=== PATIENT | female | born 1970 | race Caucasian/White ===

== ENCOUNTER 2016-12-15 14:06 | Inpatient (IN) | payer OTHER ==
[~2016-12-15] VITALS: Ht 172.7 cm; Wt 96.0 kg
[~2016-12-15 14:06] MED LIST: LEVO100T82 PO; NAPR-260 PO; SIMV20TA2 PO
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
[2016-12-15] MEDS ORDERED: LORA1TAB PO (14:45)
[2016-12-15] MEDS ORDERED: FER325 PO (14:45)
[2016-12-15] MEDS ORDERED: LORAZEPAM 2 MG INJ IV ONE ×3 (15:00→20:30)
[2016-12-15] MEDS ORDERED: SOD CHLORIDE 0.9% 1,000 ML IV ONE (15:00)
[2016-12-15 15:13] LABS: ADD SCAN DIFF NO
[2016-12-15 15:16] LABS: BASOPHILS % 0.4 % (0.0-2.0); EOSINOPHILS # 0.2 10^3/ul (0.0-0.5); EOSINOPHILS % 2.7 % (0.0-7.0); HEMATOCRIT 33.8 % (37.0-47.0); HEMOGLOBIN 10.3 g/dl (12.0-16.0); LYMPHOCYTES # 2.3 10^3/ul (0.8-2.9); LYMPHOCYTES % 30.9 % (15.0-51.0); MEAN CORPUSCULAR HGB CONC 30.5 g/dl (32.0-37.0); MEAN CORPUSCULAR VOLUME 78.6 fl (82.0-101.0); MEAN PLATELET VOLUME 10.1 fl (7.4-10.4); MONOCYTE # 0.4 10^3/ul (0.3-0.9); MONOCYTES % 5.2 % (0.0-11.0); NEUTROPHIL # 4.5 10^3/ul (1.6-7.5); NEUTROPHILS % 60.1 % (39.0-77.0); PLATELET COUNT 365 10^3/UL (140-415); RED CELL DISTRIBUTION WIDTH 14.9 % (11.5-14.5); WHITE BLOOD COUNT 7.5 10^3/ul (4.8-10.8)
[2016-12-15 15:25] LABS: URINE BLOOD (Dip) POC Trace-lysed (NEGATIVE)
[2016-12-15 15:30] LABS: INR 1.07; PROTIME 13.9 Sec (12.2-14.2); PT RATIO 1.1
[2016-12-15 15:31] LABS: PARTIAL THROMBOPLASTIN TIME 25.9 Sec (25.0-35.0); POTASSIUM 3.4 mmol/L (3.5-5.1)
[2016-12-15 15:33] LABS: CREATININE 0.6 mg/dl (0.44-1.00)
[2016-12-15 15:34] LABS: CALCIUM 9.7 mg/dl (8.4-10.2)
--- NOTE | 2016-12-15 16:33 | RADRPT ---
PROCEDURE: XR Abdomen. CLINICAL INDICATION: Abdominal pain TECHNIQUE: AP and decubitus abdomen x-ray. COMPARISON: None. FINDINGS: Scattered air is seen in the colon. Multiple air-filled loops of small bowel are seen in the abdome n. A few loops of small bowel appear dilated measuring up to approximately 3.5 cm in the left lower abdomen. No gross free air seen on the decubitus image. Organomegaly is identified. Cholecystecto my clips are seen in the right upper quadrant. Degenerative changes are seen in the spine and hips. A few phleboliths are seen in the pelvis. IMPRESSION: A few air-filled, mildly dilated loops of small bowel in the abdomen. Finding may reflect small bow el ileus or obstruction. If further characterization is needed CT should be considered. If further characterization of the abdomen is needed CT is recommended. RPTAT: AA .Nir Hdez MD, Date Time Electronically viewed and signed by .Nir Hdez MD, on 12/15/2016 16:33 .P/
[2016-12-15] MEDS ORDERED: POTASSIUM CHLORIDE (SR) 20 MEQ TAB PO STA (16:34)
--- NOTE | 2016-12-15 18:59 | RADRPT ---
PROCEDURE: MRI Brain without contrast. CLINICAL INDICATION: Left-sided weakness. TECHNIQUE: MRI of the brain was performed with the following sequences obtained: Sagittal, coronal and axial T1-weighted, axial T2-weighted, axial FLAIR, axial diffusion weighted (with ADC map), and coronal GRE. COMPARISON: None available FINDINGS: Abnormal restricted diffusion involving the posterior aspect of the medial right temporal lobe invol ving the hippocampus with associated hyperintense FLAIR signal in this location, findings consistent with an acute ischemic infarct. Additional restricted diffusion is present within the center of th e right thalamic nucleus consistent with an acute ischemic lacunar type infarct measuring 1 cm in gr eatest dimension. An additional ischemic infarct is present in the right splenium of the corpus shan losum, the ovoid abnormality 1.3 cm. Local mass effect of the right temporal lobe sulci is present b ut there is no midline shift, herniation or hydrocephalous No hemorrhage or mass lesion is present. The extraaxial spaces are clear of collections. The ventricular system and sulci are normal. No signal alteration is present within the brainstem or cerebellum. The fourth ventricle is midline and the craniocervical junction lesion is intact. The area of the sella is normal. The bony calvarium and skull base are intact. Incidental mild chronic-appearing ethmoid sinus mucos al thickening is present. Moderate bilateral maxillary sinus disease is present with a small left ma xillary air fluid level. Trace sphenoid sinus disease is noted. There is a small amount of fluid w ithin the right Physiologic flow voids within the internal carotid and vertebral arteries are mainta ined. RPTAT:HJJR IMPRESSION: 1. Acute ischemic infarcts within the right posterior cerebral artery territory involving the poste rior hippocampus of the medial right temporal lobe, right thalamus and right splenium of the corpus callosum. 2. Local mass effect only is present without evidence of midline shift, herniation, hemorrhage or h ydrocephalous. 3. Critical results are discussed by telephone with emergency room physician Dr. Mayberry at 18:58 Physician Hodan Date Time Electronically viewed and signed by Physician Hodan on 12/15/2016 18:59 JR/
--- NOTE | 2016-12-15 19:21 | RADRPT ---
PROCEDURE: MRI Cervical Spine. CLINICAL INDICATION: Neck pain. Left-sided weakness. TECHNIQUE: An MRI of the cervical spine was performed utilizing the following sequences: Sagittal T1 weighted, sagittal and axial T2 weighted, sagittal T2 weighted with fat saturation, and axial GRE . COMPARISON: No prior studies are available for comparison. FINDINGS: There is a normal lordosis of the cervical spine. No vertebral body subluxation is seen. The verte bral bodies are normal in height. There is no focal suspect marrow lesion. The cervical cord is norm al in caliber and signal intensity. The craniocervical junction is unremarkable. C2-3: The disk height is preserved. No focal posterior disc herniation. No spinal canal or neural f oraminal stenosis. C3-4: The disk height is preserved. Minimal posterior disk osteophyte complex is noted. Uncovertebr al osteophytes and facet arthropathy contribute to mild foraminal stenosis. No spinal canal stenosis . C4-5: The disk height is preserved. 2-3 mm posterior disk osteophyte complex is noted which contrib utes to mild spinal canal narrowing. Uncovertebral osteophytes and facet arthropathy contribute to m ild right and moderate left foraminal stenosis. The AP diameter of the spinal canal measures 7 mm. C5-6: The disk height is mildly decreased with dislocation. There is a broad-based disk extrusion m easuring 3.5 x 14 mm (AP x craniocaudal) which contributes to moderate to severe spinal canal stenos is with flattening of ventral spinal cord. Uncovertebral osteophytes and facet arthropathy contribut e to mild right and moderate to severe left foraminal stenosis. The AP diameter of the spinal canal measures 6 mm. C6-7: The disk height is preserved. 2-3 mm posterior disk osteophyte complex is noted which contrib utes to mild spinal canal narrowing. Uncovertebral osteophytes and facet arthropathy contribute to m oderate bilateral foraminal stenosis. The AP diameter of the spinal canal measures 8 mm. C7-T1: The disk height is preserved. No focal posterior disc herniation. No spinal canal or neural foraminal stenosis. IMPRESSION: 1. Mild discogenic disease mainly at C5-C6 with a broad-based disk extrusion which contributes to m oderate to severe spinal canal stenosis with flattening of ventral spinal cord. Mild right and moder ate to severe left foraminal stenosis. 2. Posterior disk osteophyte complexes contribute to mild spinal canal narrowing at C4-C5 and C6-C7 . 3. Multilevel foraminal stenosis as outlined in details in findings. RPTAT: EE .Selni Denise MD, MD Date Time Electronically viewed and signed by .Selin Denise MD, on 12/15/2016 19:21 .N/
[2016-12-15] MEDS ORDERED: ASPIRIN 325 MG TAB PO ONE (20:00)
[2016-12-15] MEDS ORDERED: POTASSIUM CHLORIDE 250 ML IVPB ONE (20:00)
[2016-12-15] MEDS ORDERED: CEFTRIAXONE 1 GM/50 ML (PMX) 50 ML IVPB ONE (20:00)
[2016-12-15 20:16] VITALS: TEMP 97.8
[2016-12-15] MEDS ORDERED: ASPIRIN 300 MG SUPP PR ONE (20:30)
[2016-12-15] MEDS ORDERED: IOHEXOL 0 ML ONE (20:59)
[2016-12-15] MEDS ORDERED: SOD CHLORIDE 0.9% 100 ML ONE (20:59)
[2016-12-15] MEDS ORDERED: IOHEXOL 100 ML ONE (20:59)
[2016-12-15 21:49] VITALS: PULSE 84
--- NOTE | 2016-12-15 21:50 | RADRPT ---
PROCEDURE: CT angiogram neck and brain. CLINICAL INDICATION: Ischemic infarcts right cerebral hemisphere. Left-sided weakness. TECHNIQUE: The study was performed utilizing 0.6 axial sections from the thoracic inlet to the adelaide clare with the use of 97 cc of Omnipaque 350 intravenous contrast. Multiplanar and rotational MIP ref ormats were obtained. 3-D reconstructions were not performed. CTDIvol = 38.35 mGy and DLP = 754.27 mGycm. COMPARISON: MRI brain 12/15/2016 FINDINGS: CTA neck: Right carotid system: No common carotid artery occlusion or atheromatous change of significance is present. The carotid bifurcation is normal. The internal carotid artery shows no evidence for occl usion or significant stenosis. The degree of internal carotid artery stenosis is estimated at less than 30%. Left carotid system:No common carotid artery occlusion or atheromatous change of significance is pre sent. The carotid bifurcation is normal. The internal carotid artery shows no evidence for occlusi on or significant stenosis. The degree of internal carotid artery stenosis is estimated at less than 30%. Internal carotid artery stenosis estimation is based upon NASCET criteria. Right vertebral artery: Codominant to the contralateral side and uniform in caliber throughout, no evidence of dissection, occlusion or focal stenosis. Left vertebral artery: Dominant and morphology with no evidence for dissection, stenosis or occlusi on. CTA brain: Anterior circulation: The intracranial internal carotid arteries are normal bilaterally with no eduard dence for occlusion or stenosis. The anterior and middle cerebral arteries are also normal with no evidence for narrowing. There is no vasculitis pattern or extraluminal projection of contrast to lozano ggest an aneurysm. Posterior circulation: Basilar artery is uniform in caliber with no evidence of stenosis. There are no findings to correlate with the ischemic infarcts in the right medial temporal lobe, right thalam us and splenium of the right corpus callosum seen on the MRI The basilar tip is unremarkable for ane urysm. The posterior cerebral arteries are normal bilaterally as are the superior cerebellar arteri es. No vascular malformation is identified. Venous structures: Sagittal sinuses appear patent without evidence of thrombus. Transverse and sig moid sinuses are unremarkable as is the torcula. Internal cerebral veins, vein of Sridhar and straigh t sinus show no abnormalities. No cortical vein abnormality is appreciated. Other findings: Chronic ethmoid and right greater than left maxillary sinus disease is present RPTAT:HJJR IMPRESSION: 1. Unremarkable CT angiogram of the neck with no evidence of hemodynamically significant stenosis bi laterally. 2. Unremarkable CT angiogram of the brain with no findings to correlate with the right-sided ischemi c infarcts demonstrated on the MRI from earlier the same day. Physician Hodan Date Time Electronically viewed and signed by Ishan Currie Physician on 12/15/2016 21:50 /
[2016-12-15 22:00] VITALS: BP 116/74; PULSE 83; RESP 18
[2016-12-15 22:24] VITALS: Ht 172.7 cm; Wt 96.0 kg
[2016-12-15 23:01] VITALS: BP 116/69; RESP 22
[2016-12-16] VITALS (13 sets, daily range): BP systolic 101–123; BP diastolic 59–77; PULSE 76–91; RESP 17–20
[2016-12-16] MEDS ORDERED: MAGNESIUM HYDROXIDE 30ML CUP PO PRN
[2016-12-16] MEDS ORDERED: NACL 0.9% 3 ML SYG IV SCH
[2016-12-16] MEDS ORDERED: ACETAMINOPHEN 650 MG SUPP PR PRN
[2016-12-16] MEDS ORDERED: BISACODYL (EC) 5 MG TAB PO PRN
[2016-12-16] MEDS ORDERED: ACETAMINOPHEN 325 MG TAB PO PRN
[2016-12-16] MEDS ORDERED: DOCUSATE SODIUM 100 MG CAP PO PRN
[2016-12-16] MEDS ORDERED: LORAZEPAM 1 MG TAB PO PRN ×2 (00:30)
[2016-12-16] MEDS: NS + KCL 20 MEQ 1,000 ML IV SCH ×2 (00:50→23:55)
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
[2016-12-16 01:30] LABS: CREATINE KINASE 64 IU/L (23-200)
[2016-12-16 01:32] LABS: CHOL/HDL RATIO 5.4 RATIO
[2016-12-16 01:44] LABS: CK-MB 0.51 ng/ml (0.0-2.4)
[2016-12-16 02:10] LABS: TROPONIN-I < 0.012 ng/ml (0.00-0.12)
[2016-12-16] MEDS: LORAZEPAM 2 MG INJ IV PRN ×3 (03:43→14:50)
[2016-12-16] MEDS: PANTOPRAZOLE 40 MG INJ IV SCH (06:21)
[2016-12-16] MEDS: LEVOTHYROXINE 100 MCG TAB PO SCH (09:13)
[2016-12-16] MEDS: ASPIRIN 325 MG TAB PO SCH (09:13)
[2016-12-16] MEDS: FERROUS SULFATE (EC) 325 MG TAB PO SCH ×2 (09:13→20:38)
[2016-12-16 10:51] LABS: CREATINE KINASE 50 IU/L (23-200)
[2016-12-16 11:01] LABS: CK-MB 0.33 ng/ml (0.0-2.4)
--- NOTE | 2016-12-16 11:01 | RADRPT ---
PROCEDURE: Carotid ultrasound CLINICAL INDICATION: Stroke, carotid bruits TECHNIQUE: Whitt scale, color doppler, spectral doppler ultrasound of the bilateral carotid and adelaide tebral arteries. This study indirectly references the measurement of the distal ICA diameter as the denominator for s tenosis measurement. Validated velocity measurements with angiographic measurements, velocity criter ia are extrapolated from diameter data as defined by: *Cartoid artery stenosis: whitt-scale and Doppl er US diagnosis. Society of Radiologists in Ultrasound Consensus Conference. Radiology 2003; 229: 34 0-346. SRU Consensus Conference Criteria for the Diagnosis of Carotid Artery Stenosis* Degree of Stenosis, % ICA PSV, cm/sec Plaque Estimate, % ICA/CCA PSV Ratio Normal <125 None <2.0 <50 <125 <50 <2.0 50 69 125-230 >50 2.0-4.0 >70 but less than near occlusion >230 >50 <4.0 Near occlusion High, low, or undetectable Visible Variable Total occlusion Undetectable Visible, no detectable lumen Not applicable COMPARISON: CT angiography of the extracranial circulation 12/15/2016 FINDINGS: Location Right CCA61 cm/sec Prox ICA 54 cm/sec Mid ICA60 cm/sec Dist ICA63 cm/sec ECA68 cm/sec ICA/CCA1.0 Left CCA77 cm/sec Prox ICA 56 cm/sec Mid ICA63 cm/sec Dist ICA80 cm/sec ECA60 cm/sec ICA/CCA1.0 Plaque burden: No significant plaque is seen. Antegrade flow is seen within the vertebral arteries bilaterally. IMPRESSION: Normal examination. RPTAT: AADD .Jose Rucker MD, MD Date Time Electronically viewed and signed by .Jose Rucker MD, on 12/16/2016 11:01 .B/
[2016-12-16 11:14] LABS: TROPONIN-I < 0.012 ng/ml (0.00-0.12)
[2016-12-16] MEDS ORDERED: GABAPENTIN 300 MG CAP PO SCH ×2 (18:30→21:00)
--- NOTE | 2016-12-16 18:33 | QN ---
Documentation Comment [id number] LUIS TAY MD December 16, 2016 18:33
--- NOTE | 2016-12-16 18:46 | CONS ---
DATE OF ADMISSION: 12/15/2016 DATE OF CONSULTATION: 12/16/2016 TYPE OF CONSULTATION: Neurology. Thank you, Dr. Olivia, for your kind referral for evaluation of acute stroke. HISTORY OF PRESENT ILLNESS: The patient is a 46-year-old lady with past medical history of anemia a nd hypothyroidism who 2 days ago suddenly developed left-sided numbness went for evaluation at [facility] and was told that she was anxious and sent home. Her symptoms continued and she came to be evaluated to [facility]. Also, she was complaining of unsteadiness of gait . She had MRI of the brain which shows acute ischemic infarcts in the right posterior cerebral jaspreet ry territory involving posterior hippocampus, medial right temporal lobe, right thalamus and spleniu m of corpus callosum. Minimal mass effect. She also had a cervical MRI. Mild discogenic disease at C5-C6 with a broad disk extrusion contribut ing to moderate to severe spinal canal stenosis with flattening of ventral spinal cord. She had a CT angiogram of the head and neck essentially negative. Carotid ultrasound was also done and negative. MEDICATIONS PRIOR TO ADMISSION: 1. Iron. 2. Lorazepam 1 mg every 8 hours for anxiety. 3. Naprosyn. 4. Levothyroxine. Currently, she is on iron aspirin 325 mg, Synthroid, Protonix, Ativan q.6h. p.r.n. as needed for an xiety. LABORATORIES: Her labs shows essentially normal basic metabolic panel. Cholesterol 173, LDL 110. Hemoglobin 10, hematocrit 33. Normal WBCs and platelets. Normal PT, PTT. Urinalysis: Trace of ke tones, blood and 1+ leukocyte esterase. The patient received ceftriaxone in the emergency room. ALLERGIES: NONE. SOCIAL HISTORY: No alcohol, tobacco, drug use. FAMILY HISTORY: Noncontributory. While in the hospital, patient complains of mild headache. She is getting Tylenol and it helps the pain. She complains of severe anxiety and slight worsening of numbness which became slightly less o n the left face yesterday but came back today. Numbness is unpleasant with electrical shock sensati on. According to the family, and daughter at bedside, the patient is not having any problems swa llowing. She did put on low cholesterol diet. I do see a swallow study done. PHYSICAL EXAMINATION VITAL SIGNS: Temperature 99.2, pulse 77, blood pressure 112/60. GENERAL: Not in acute distress, lying in bed. HEENT: Normocephalic, atraumatic head. NECK: No carotid bruits. No thyromegaly. LUNGS: Clear to auscultation bilaterally. CARDIAC: Normal cardiac rhythm and sounds. ABDOMEN: Soft, nontender. EXTREMITIES: No cyanosis, clubbing or edema. NEUROLOGICAL: The patient is visibly anxious and flat affect, at times tearful, fluent speech. Arron ented x3. Present response to visual threat bilaterally. Pupils reactive from 3 to 2 mm bilaterall y. Extraocular movements intact without nystagmus. Symmetrical face with trace of left nasolabial fold flattening, but no definite weakness. Decreased sensation on the left hemiface. Tongue is in midline. Palate elevates symmetrically. Motor strength examination shows give way in the left uppe r extremity, possibly mild weakness. She seemed to maybe exaggerate slightly, no pronator drift, bu t down drift on the left. Normal strength in the lower extremities. Normal bulk and tone. SENSORY: Diminished on the left upper and lower extremities to all modalities. Deep tendon reflexe s 2+ throughout. Downgoing toes on the right and equivocal on the left. Coordination preserved on [id number] testing. No dysmetria or tremor. IMPRESSION: Acute ischemic stroke in patient with prior medical history only of anemia and hypothyr oidism. She has mild dyslipidemia. I will put her on high dose statin. Continue aspirin. Stroke occurred 2 days ago. It is probably okay to gradually obtain control of her blood pressure and keep her normotensive. I will increase her Lorazepam at least for now. We will make it 1 mg every 4 h ours as needed for anxiety. Also, I will start Neurontin for presence of paresthesias. The patient may benefit from antidepressant medications. I do not want to throw several new medicines at the s rosy time, so maybe it could be initiated later. We will get physical therapy consultation and savana rodríguez the recommendation for her disposition. Echocardiogram was done, but I do not see the report. E KG was normal as I mentioned already. Thank you very much for this interesting consultation. Dictated By: MICHAEL SHEA/GUILLERMINA Conf#: [id number] DID#: [id number]
--- NOTE | 2016-12-16 19:05 | HP ---
DATE OF ADMISSION: 12/15/2016 HISTORY OF PRESENT ILLNESS: The patient is a 46-year-old female who initially was seen at [facility] with complaints of left arm numbness, dizziness and blurred vision. As per ER records, stella chambers was taken to [facility] and extensive workup done including negative chest x-ray, negativ e brain CT. She was diagnosed with sinusitis and discharged with Xanax and Zithromax. The patient represented with history of chronic low back pain requiring epidural injection per record. In the p ast, the patient presented with anxiety episode. Patient has relatives who provided the history. T he patient is sleepy and groggy, unable to give detailed history. Presented with weakness. The pat ient at the time of this dictation was not able to give detailed history. PAST MEDICAL HISTORY: Positive for hypothyroidism and anxiety. ALLERGY HISTORY: NEGATIVE. FAMILY HISTORY: Per family is negative. SOCIAL HISTORY: Negative. MEDICATION HISTORY: 1. Iron sulfate. 2. Levothyroxine. 3. Lorazepam. 4. Naproxen. REVIEW OF SYSTEMS: Cannot be obtained at the time of this dictation as the patient is sleepy and a little sedated. PHYSICAL EXAMINATION: GENERAL: The patient is a mildly overweight female, awake, easily arousable, moving both upper and lower extremities without difficulty. VITAL SIGNS: Pulse 79, blood pressure 119/72. HEENT: Head is atraumatic, normocephalic. Pupils equal, reactive to light. NECK: Supple. No JVD. LUNGS: Clear. CARDIOVASCULAR: S1, S2 are normal. ABDOMEN: Soft, nontender. Bowel sounds positive. No palpable mass or hepatosplenomegaly. No guar ding, rebound tenderness. EXTREMITIES: No cyanosis, clubbing, or edema. CENTRAL NERVOUS SYSTEM: The patient is awake, alert with no focal deficit. LABORATORY DATA: Hematocrit 33.8, MCV 17.6, platelet count is ____, potassium 3.4. Patient had cer vical spine x-ray which shows mild discogenic disease at C5-C6 with broad-based disk extrusion which contributes to moderate to severe spinal canal stenosis with ____ spinal cord, mild right and mode rate to severe left foraminal stenosis, posterior disk osteophyte complex contributes to mild spinal canal narrowing at C4-C5, C6-C7. The patient has a brain MRI with acute ischemic infarction within the right posterior cerebral artery territory involving the posterior hippocampus of the medial rig ht temporal lobe, right thalamus and right splenic of the corpus callosum, local mass effect on this end without evidence of midline shift. The patient had abdominal x-ray that showed air-filled, mil dly dilated loops of small bowel of the abdomen. CTA shows patient has unremarkable CT angiogram of the neck with no evidence of stenosis. Patient had a head CTA, unremarkable angiogram, carotid art ross ultrasound done shows the patient has a normal examination. IMPRESSION: 1. Acute cerebrovascular accident. 2. Hypokalemia. 3. Anxiety. 4. Degenerative joint disease. PLAN: Dr. Scott has seen this patient in consultation. Continue aspirin, neuro check per hospital protocol. Patient will be placed on Lipitor as well. The patient will have neurology consultation. Dr. Scott has been called. Dictated By: LUIS TAY MD BS/NTS Conf#: [id number] DID#: [id number]
[2016-12-16] MEDS: LORAZEPAM 1 MG TAB PO PRN (19:29)
[2016-12-16] MEDS: GABAPENTIN 300 MG CAP PO SCH (20:37)
[2016-12-16] MEDS: ATORVASTATIN 80 MG TAB PO SCH (20:38)
[2016-12-16] MEDS ORDERED: ATORVASTATIN 20 MG TAB PO SCH (21:00)
[2016-12-17] VITALS (12 sets, daily range): BP systolic 98–129; BP diastolic 60–74; PULSE 75–90; RESP 16–20
[2016-12-17] MEDS: PANTOPRAZOLE 40 MG INJ IV SCH (05:50)
[2016-12-17] MEDS: LORAZEPAM 1 MG TAB PO PRN ×4 (06:29→22:13)
[2016-12-17 07:03] LABS: ADD SCAN DIFF NO
[2016-12-17 07:12] LABS: BASOPHILS % 0.6 % (0.0-2.0); EOSINOPHILS # 0.4 10^3/ul (0.0-0.5); HEMATOCRIT 32.6 % (37.0-47.0); HEMOGLOBIN 9.9 g/dl (12.0-16.0); LYMPHOCYTES # 1.7 10^3/ul (0.8-2.9); LYMPHOCYTES % 25.9 % (15.0-51.0); MEAN CORPUSCULAR HGB CONC 30.4 g/dl (32.0-37.0); MEAN CORPUSCULAR VOLUME 78.9 fl (82.0-101.0); MEAN PLATELET VOLUME 9.8 fl (7.4-10.4); MONOCYTE # 0.4 10^3/ul (0.3-0.9); MONOCYTES % 6.6 % (0.0-11.0); NEUTROPHIL # 3.8 10^3/ul (1.6-7.5); NEUTROPHILS % 60.1 % (39.0-77.0); PLATELET COUNT 383 10^3/UL (140-415); RED BLOOD COUNT 4.13 10^6/ul (4.20-5.40); RED CELL DISTRIBUTION WIDTH 14.8 % (11.5-14.5); WHITE BLOOD COUNT 6.4 10^3/ul (4.8-10.8)
[2016-12-17 07:35] LABS: ALBUMIN/GLOBULIN RATIO 1.25; BILIRUBIN,INDIRECT 0.5 mg/dl (0-1.1); BILIRUBIN,TOTAL 0.5 mg/dl (0.2-1.3); CALCIUM 9.1 mg/dl (8.4-10.2); CREATININE 0.6 mg/dl (0.44-1.00); POTASSIUM 3.9 mmol/L (3.5-5.1); TOTAL PROTEIN 7.2 g/dl (6.1-8.1)
[2016-12-17] MEDS: LEVOTHYROXINE 100 MCG TAB PO SCH (07:59)
[2016-12-17] MEDS: ASPIRIN 325 MG TAB PO SCH (08:52)
[2016-12-17] MEDS: FERROUS SULFATE (EC) 325 MG TAB PO SCH ×2 (08:52→21:17)
[2016-12-17] MEDS: GABAPENTIN 300 MG CAP PO SCH ×4 (08:52→21:16)
[2016-12-17] MEDS ORDERED: MENTHOL/METH SALICYLATE 30 GM OINT TOP PRN (15:00)
--- NOTE | 2016-12-17 16:03 | PN ---
Date/Time of Note Date/Time of Note DATE: 12/17/16 TIME: 16:02 Assessment/Plan VTE Prophylaxis VTE Prophylaxis Intervention: other Lines/Catheters IV Catheter Type (from Nrs): Peripheral IV Assessment/Plan Chief Complaint/Hosp Course CVA HTN DYSLIPEDEMIA PLAN PT OT PER NEURO Problems: Subjective 24 Hr Interval Summary Subjective hx not possible: other (WEAKNESS BETTER) Exam/Review of Systems Vital Signs Vitals Vital Signs Date Time Temp Pulse Resp B/P Pulse Ox O2 Delivery O2 Flow Rate FiO2 12/17/16 15:45 98.5 79 20 121/67 95 12/15/16 22:00 Room Air Intake and Output 12/16/16 12/16/16 12/17/16 15:00 23:00 07:00 Intake Total 560 ml 980 ml Balance 560 ml 980 ml Exam Neck: supple Respiratory: clear to auscultation Cardiovascular: regular rate and rhythm Gastrointestinal: soft Musculoskeletal: nl extremities to inspection Extremities: normal pulses Results Result Diagram: 12/17/16 0640 12/17/16 0640 Results 24 hrs Laboratory Tests Test 12/17/16 06:40 White Blood Count 6.4 Red Blood Count 4.13 L Hemoglobin 9.9 L Hematocrit 32.6 L Mean Corpuscular Volume 78.9 L Mean Corpuscular Hemoglobin 24.0 L Mean Corpuscular Hemoglobin Concent 30.4 L Red Cell Distribution Width 14.8 H Platelet Count 383 Mean Platelet Volume 9.8 Neutrophils % 60.1 Lymphocytes % 25.9 Monocytes % 6.6 Eosinophils % 6.0 Basophils % 0.6 Nucleated Red Blood Cells % 0.0 Neutrophils # 3.8 Lymphocytes # 1.7 Monocytes # 0.4 Eosinophils # 0.4 Basophils # 0.0 Nucleated Red Blood Cells # 0.0 Sodium Level 136 Potassium Level 3.9 Chloride Level 106 Carbon Dioxide Level 23 Anion Gap 11 Blood Urea Nitrogen 11 Creatinine 0.60 Glucose Level 98 Calcium Level 9.1 Total Bilirubin 0.5 Direct Bilirubin 0.00 Indirect Bilirubin 0.5 Aspartate Amino Transf (AST/SGOT) 29 Alanine Aminotransferase (ALT/SGPT) 50 Alkaline Phosphatase 60 Total Protein 7.2 Albumin 4.0 Globulin 3.20 Albumin/Globulin Ratio 1.25 Medications Medications Current Medications Ferrous Sulfate 325 mg 325 mg BID PO Last administered on 12/17/16t 08:52; Admin Dose 325 MG; Start 12/16/16 at 09:00 Potassium Chloride/Sodium Chloride (NS-KCl 20 Meq) 1,000 ml @ 40 mls/hr Q24H IV Last administered on 12/16/16 23:55; Admin Dose 40 MLS/HR; Start 12/15/16 at 23:55 Acetaminophen (Tylenol Tab) 650 mg Q6H PRN PO PAIN LEVEL 1-3 OR FEVER Last administered on 12/16/16 18:23; Admin Dose 650 MG; Start 12/16/16 at 00:00 Acetaminophen (Tylenol Supp) 650 mg Q6H PRN [place] PAIN LEVEL 1-3 OR FEVER; Start 12/16/16 at 00:00 Docusate Sodium (Colace) 100 mg Q12H PRN PO CONSTIPATION; Start 12/16/16 at 00: 00 Magnesium Hydroxide (Milk Of Mag) 30 ml DAILY PRN PO CONSTIPATION; Start at 00:00 Bisacodyl (Dulcolax) 5 mg DAILY PRN PO CONSTIPATION; Start 12/16/16 at 00:00 Pantoprazole (Protonix Iv) 40 mg DAILY@06 IV Last administered on 12/17/16 05: 50; Admin Dose 40 MG; Start 12/16/16 at 06:00 Aspirin (Aspirin) 325 mg DAILY PO Last administered on 12/17/16 08:52; Admin Dose 325 MG; Start 12/16/16 at 09:00 Lorazepam (Ativan) 1 mg Q6H PRN IV anxiety Last administered on 12/16/16 14:50 ; Admin Dose 1 MG; Start 12/16/16 at 04:00 Lorazepam (Ativan) 1 mg Q4H PRN PO ANXIETY Last administered on 12/17/16 15:45 ; Admin Dose 1 MG; Start 12/16/16 at 18:20 Atorvastatin Calcium (Lipitor) 80 mg HS PO Last administered on 12/16/16 20:38 ; Admin Dose 80 MG; Start 12/16/16 at 21:00 Gabapentin (Neurontin) 300 mg TID PO Last administered on 12/17/16 14:41; Admin Dose 300 MG; Start 12/16/16 at 21:00 Menthol/Methyl Salicylate (Noble Proctor) 1 applic TID PRN TOP PAIN Last administered on 12/17/16 15:44; Admin Dose 1 APPLIC; Start 12/17/16 at 15:00 LUIS TAY MD December 17, 2016 16:03
--- NOTE | 2016-12-17 17:36 | CONS ---
Date/Time of Note Date/Time of Note DATE: 12/17/16 TIME: 17:33 Consult Date/Type/Reason Admit Date/Time December 15, 2016 at 19:59 Initial Consult Date Type of Consultation: neurology Subjective no acute events, still unpleasant electric tingling,despite neurontin 300 tid left sided weakness, numbness, ataxia. Objective Vital Signs Date Time Temp Pulse Resp B/P Pulse Ox O2 Delivery O2 Flow Rate FiO2 12/17/16 16:00 82 12/17/16 15:45 98.5 20 121/67 95 12/15/16 22:00 Room Air Intake and Output 12/16/16 12/16/16 12/17/16 15:00 23:00 07:00 Intake Total 560 ml 980 ml Balance 560 ml 980 ml Results/Medications Result Diagram: 12/17/16 0640 12/17/16 0640 Results 24 hrs Laboratory Tests Test 12/17/16 06:40 White Blood Count 6.4 Red Blood Count 4.13 L Hemoglobin 9.9 L Hematocrit 32.6 L Mean Corpuscular Volume 78.9 L Mean Corpuscular Hemoglobin 24.0 L Mean Corpuscular Hemoglobin Concent 30.4 L Red Cell Distribution Width 14.8 H Platelet Count 383 Mean Platelet Volume 9.8 Neutrophils % 60.1 Lymphocytes % 25.9 Monocytes % 6.6 Eosinophils % 6.0 Basophils % 0.6 Nucleated Red Blood Cells % 0.0 Neutrophils # 3.8 Lymphocytes # 1.7 Monocytes # 0.4 Eosinophils # 0.4 Basophils # 0.0 Nucleated Red Blood Cells # 0.0 Sodium Level 136 Potassium Level 3.9 Chloride Level 106 Carbon Dioxide Level 23 Anion Gap 11 Blood Urea Nitrogen 11 Creatinine 0.60 Glucose Level 98 Calcium Level 9.1 Total Bilirubin 0.5 Direct Bilirubin 0.00 Indirect Bilirubin 0.5 Aspartate Amino Transf (AST/SGOT) 29 Alanine Aminotransferase (ALT/SGPT) 50 Alkaline Phosphatase 60 Total Protein 7.2 Albumin 4.0 Globulin 3.20 Albumin/Globulin Ratio 1.25 Medications Current Medications Ferrous Sulfate 325 mg 325 mg BID PO Last administered on 12/17/16 08:52; Admin Dose 325 MG; Start 12/16/16 at 09:00 Potassium Chloride/Sodium Chloride (NS-KCl 20 Meq) 1,000 ml @ 40 mls/hr Q24H IV Last administered on 12/16/16 23:55; Admin Dose 40 MLS/HR; Start 12/15/16 at 23:55 Acetaminophen (Tylenol Tab) 650 mg Q6H PRN PO PAIN LEVEL 1-3 OR FEVER Last administered on 12/16/16 18:23; Admin Dose 650 MG; Start 12/16/16 at 00:00 Acetaminophen (Tylenol Supp) 650 mg Q6H PRN [place] PAIN LEVEL 1-3 OR FEVER; Start 12/16/16 at 00:00 Docusate Sodium (Colace) 100 mg Q12H PRN PO CONSTIPATION; Start 12/16/16 at 00: 00 Magnesium Hydroxide (Milk Of Mag) 30 ml DAILY PRN PO CONSTIPATION; Start at 00:00 Bisacodyl (Dulcolax) 5 mg DAILY PRN PO CONSTIPATION; Start 12/16/16 at 00:00 Pantoprazole (Protonix Iv) 40 mg DAILY@06 IV Last administered on 12/17/16 05: 50; Admin Dose 40 MG; Start 12/16/16 at 06:00 Aspirin (Aspirin) 325 mg DAILY PO Last administered on 12/17/16 08:52; Admin Dose 325 MG; Start 12/16/16 at 09:00 Lorazepam (Ativan) 1 mg Q6H PRN IV anxiety Last administered on 12/16/16 14:50 ; Admin Dose 1 MG; Start 12/16/16 at 04:00 Lorazepam (Ativan) 1 mg Q4H PRN PO ANXIETY Last administered on 12/17/16 15:45 ; Admin Dose 1 MG; Start 12/16/16 at 18:20 Atorvastatin Calcium (Lipitor) 80 mg HS PO Last administered on 12/16/16 20:38 ; Admin Dose 80 MG; Start 12/16/16 at 21:00 Gabapentin (Neurontin) 300 mg TID PO Last administered on 12/17/16 14:41; Admin Dose 300 MG; Start 12/16/16 at 21:00 Menthol/Methyl Salicylate (Noble Proctor) 1 applic TID PRN TOP PAIN Last administered on 12/17/16 15:44; Admin Dose 1 APPLIC; Start 12/17/16 at 15:00 Assessment/Plan Chief Complaint/Hosp Course PHYSICAL EXAMINATION GENERAL: Not in acute distress, lying in bed. HEENT: Normocephalic, atraumatic head. NECK: No carotid bruits. No thyromegaly. LUNGS: Clear to auscultation bilaterally. CARDIAC: Normal cardiac rhythm and sounds. ABDOMEN: Soft, nontender. EXTREMITIES: No cyanosis, clubbing or edema. NEUROLOGICAL: The patient is visibly anxious and flat affect, fluent speech. Oriented x3. Present response to visual threat bilaterally. Pupils reactive from 3 to 2 mm bilaterally. Extraocular movements intact without nystagmus. Asymmetrical face with trace of left nasolabial fold flattening, but no definite weakness. Decreased sensation on the left hemiface. Tongue is in midline. Palate elevates symmetrically. Motor strength examination shows give way in the left upper extremity, possibly mild weakness. She seemed to maybe exaggerate slightly, no pronator drift, but down drift on the left. Normal strength in the lower extremities. Normal bulk and tone. SENSORY: Diminished on the left upper and lower extremities to all modalities. Deep tendon reflexes 2+ throughout. Downgoing toes on the right and equivocal on the left. Coordination preserved on [id number] testing. No dysmetria or tremor. IMPRESSION: Acute ischemic stroke. Continue aspirin, lipitor; keep euglycemic , normotensive. Cont PT/OT. Consider referral to acute rehab. Increase neurontin [address] Roque will follow over the weekend Problems: MICHAEL WHITE MD December 17, 2016 17:36
--- NOTE | 2016-12-17 20:37 | RADRPT ---
Echocardiogram Report Patient Name: VIKTORIA OCHOA Gender: Female Date: 1970 Study Date: 16-Dec-2016 Transfer Controller: Estephania Shoemaker [facility] Location: [facility] Ref. Physician: LUIS TAY Quality: Good Procedures: Transthoracic echocardiogram with complete 2D, M-Mode, and doppler examination. Indications: Cerebrovascular Accident. 2D/M Mode Doppler Measurement Value Normal Ranges Measurement Value Normal Ranges LVIDd 2D 5.6 3.5 - 5.6 cm AV Peak Oswald 1.2 m/sec LVIDs 2D 3.1 2.1 - 4.1 cm AV Peak PG 5.0 mmHg FS 2D 44.3 % LVOT Peak Oswald 1.1 m/sec LVPWd 2D 0.9 0.6 - 1.1 cm LVOT Peak PG 5.0 mmHg IVSd 2D 0.8 0.6 - 1.1 cm MV E Peak Oswald 0.6 m/sec IVS/LVPW 2D 0.9 MV A Peak Oswald 0.6 m/sec AoR Diam 2D 3.1 2.0 - 3.7 cm MV E/A 0.9 LA/Ao 2D 1 0 - 1 MV Decel Time 151 msec EDV 2D 176.0 cm3 MV E/A 0.9 ESV 2D 30.4 cm3 TR Peak Oswald 2.1 m/sec LA Dimen 2D 3.3 2.3 - 4.0 cm TR Peak PG 18.0 mmHg RVSP 21.0 mmHg Findings Left Ventricle: Normal left ventricular systolic function. Normal left ventricular cavity size. Normal left ventricular wall thickness. Ejection fraction is visually estimated at 5560 %. Tissue Doppler/Mitral Doppler indices are consistent with impaired relaxation (Stage I diastolic dysfunction). Right Ventricle: Normal right ventricular size. Normal right ventricular systolic function. Left Atrium: The left atrium is normal in size. Right Atrium: The right atrium is normal in size. Mitral Valve: Normal appearance and function of the mitral valve with trace physiologic regurgitation. Aortic Valve: Normal appearance of the aortic valve. No significant aortic stenosis or insufficiency. Tricuspid Valve: Normal appearance and function of the tricuspid valve with trace physiologic regurgitation. Normal right ventricular systolic pressure. Estimated peak PA systolic pressure 21 mmHg. Pulmonic Valve: Normal pulmonic valve appearance. Pericardium: Normal pericardium with no significant pericardial effusion. Aorta: Normal aortic root. IVC: Normal size and normal respiratory collapse consistent with normal right atrial pressure. Conclusions 1.Normal left ventricular systolic function. Normal left ventricular cavity size. Normal left ventricular wall thickness. Ejection fraction is visually estimated at 55-60 %. Tissue Doppler/Mitral Doppler indices are consistent with impaired relaxation (Stage I diastolic dysfunction). 2.Normal appearance and function of the mitral valve with trace physiologic regurgitation. 3.Normal appearance and function of the tricuspid valve with trace physiologic regurgitation. Normal right ventricular systolic pressure. Estimated peak PA systolic pressure 21 mmHg. Electronically Signed By: Torrey Noland 17-Dec-2016 20:36:45 -0700 Patient Name: VIKTORIA OCHOA Study Date: 16-Dec-[id number]
[2016-12-17] MEDS: ATORVASTATIN 80 MG TAB PO SCH (21:16)
[2016-12-17] MEDS: NS + KCL 20 MEQ 1,000 ML IV SCH (23:55)
[2016-12-18] VITALS (11 sets, daily range): BP systolic 122–137; BP diastolic 72–80; PULSE 83–88; RESP 16–19
[2016-12-18] MEDS: PANTOPRAZOLE 40 MG INJ IV SCH (06:14)
[2016-12-18] MEDS: GABAPENTIN 300 MG CAP PO SCH ×4 (07:44→20:32)
[2016-12-18] MEDS: LORAZEPAM 1 MG TAB PO PRN (07:44)
[2016-12-18] MEDS: ASPIRIN 325 MG TAB PO SCH (07:44)
[2016-12-18] MEDS: FERROUS SULFATE (EC) 325 MG TAB PO SCH ×2 (07:44→20:32)
[2016-12-18] MEDS: LEVOTHYROXINE 100 MCG TAB PO SCH (07:44)
--- NOTE | 2016-12-18 15:40 | PN ---
DATE: REFERRING PHYSICIAN: Dr. Olivia SUBJECTIVE: The patient is a 46-year-old lady admitted from [facility] to [facility], the patient has acute stroke. MEDICATIONS: The patient's current medications include 1. Neurontin 300 mg q.i.d. 2. Lipitor 80 mg once a day. 3. Ativan 1 mg every 4 hours as needed. 4. Aspirin 325 mg once a day. 5. Ferrous sulfate 325 mg twice a day. 6. Synthroid 100 mcg once a day. 7. Protonix 40 mg once a day. 8. Lorazepam 1 mg every 6 hours. OBJECTIVE: GENERAL: On exam today, the patient is alert, awake, follows simple commands, looks drowsy and slee py. CRANIAL NERVES: Cranial nerve II: Pupils equal on both sides, reactive to light. Cranial nerves I II, IV, and : Extraocular muscles intact without nystagmus. Cranial nerve V: Equal sensation to face. Cranial nerve VII: Decreased nasolabial fold on the left side. Cranial nerve VIII: Decrea sed hearing on the right side. Cranial nerve VIII and IX: Elevates palate. Cranial nerve XI: Elev ates shoulder 5/5. EXTREMITIES: Right arm is 4/5. Sensation decreased on the right side for light touch and temperatu re. COORDINATION: With post-point on the right side. ASSESSMENT AND PLAN: The patient is 46 years old with acute onset of stroke. We will continue the patient on Aspirin 325 mg once a day and follow up the patient with lipid panel, maximize her statin . The patient is already on Lipitor. We will follow up the patient with carotid Doppler and 2D ech ocardiogram and follow up the patient with speech therapist as well as occupational therapist. Again, thank you for asking me to see the patient with you. Dictated By: LIV MACKEY/GUILLERMINA Conf#: [id number] DID#: [id number]
--- NOTE | 2016-12-18 19:44 | PN ---
Date/Time of Note Date/Time of Note DATE: 12/18/16 TIME: 19:42 Assessment/Plan VTE Prophylaxis VTE Prophylaxis Intervention: ambulation Lines/Catheters IV Catheter Type (from Nrs): Peripheral IV Assessment/Plan Chief Complaint/Hosp Course 1.CVA 2.HTN 3. DYSLIPEDEMIA Problems: Assessment/Plan 1. Transfer to acute rehab Subjective 24 Hr Interval Summary Constitutional: improved, no complaints Exam/Review of Systems Vital Signs Vitals Vital Signs Date Time Temp Pulse Resp B/P Pulse Ox O2 Delivery O2 Flow Rate FiO2 12/18/16 16:22 88 12/18/16 16:08 98.4 19 130/76 97 12/15/16 22:00 Room Air Intake and Output 12/17/16 12/17/16 12/18/16 15:00 23:00 07:00 Intake Total 600 ml 1180 ml Balance 600 ml 1180 ml Results Result Diagram: 12/17/16 0640 12/17/16 0640 Medications Medications Current Medications Ferrous Sulfate 325 mg 325 mg BID PO Last administered on 12/18/16 07:44; Admin Dose 325 MG; Start 12/16/16 at 09:00 Potassium Chloride/Sodium Chloride (NS-KCl 20 Meq) 1,000 ml @ 40 mls/hr Q24H IV Last administered on 12/17/16 23:55; Admin Dose 40 MLS/HR; Start 12/15/16 at 23:55 Acetaminophen (Tylenol Tab) 650 mg Q6H PRN PO PAIN LEVEL 1-3 OR FEVER Last administered on 12/16/16 18:23; Admin Dose 650 MG; Start 12/16/16 at 00:00 Acetaminophen (Tylenol Supp) 650 mg Q6H PRN [place] PAIN LEVEL 1-3 OR FEVER; Start 12/16/16 at 00:00 Docusate Sodium (Colace) 100 mg Q12H PRN PO CONSTIPATION; Start 12/16/16 at 00: 00 Magnesium Hydroxide (Milk Of Mag) 30 ml DAILY PRN PO CONSTIPATION; Start at 00:00 Bisacodyl (Dulcolax) 5 mg DAILY PRN PO CONSTIPATION; Start 12/16/16 at 00:00 Pantoprazole (Protonix Iv) 40 mg DAILY@06 IV Last administered on 12/18/16 06: 14; Admin Dose 40 MG; Start 12/16/16 at 06:00 Aspirin (Aspirin) 325 mg DAILY PO Last administered on 12/18/16 07:44; Admin Dose 325 MG; Start 12/16/16 at 09:00 Lorazepam (Ativan) 1 mg Q6H PRN IV anxiety Last administered on 12/16/16 14:50 ; Admin Dose 1 MG; Start 12/16/16 at 04:00 Lorazepam (Ativan) 1 mg Q4H PRN PO ANXIETY Last administered on 12/18/16 07:44 ; Admin Dose 1 MG; Start 12/16/16 at 18:20 Atorvastatin Calcium (Lipitor) 80 mg HS PO Last administered on 12/17/16 21:16 ; Admin Dose 80 MG; Start 12/16/16 at 21:00 Menthol/Methyl Salicylate (Noble Proctor) 1 applic TID PRN TOP PAIN Last administered on 12/17/16 15:44; Admin Dose 1 APPLIC; Start 12/17/16 at 15:00 Gabapentin (Neurontin) 300 mg QID PO Last administered on 12/18/16 16:43; Admin Dose 300 MG; Start 12/17/16 at 21:00 MILLER CLANCY December 18, 2016 19:43
--- NOTE | 2016-12-18 20:02 | PDOCDIS ---
Discharge Instructions CONDITION Patient Condition: Good HOME CARE INSTRUCTIONS: Diet Instructions: Low Fat /CholesterolSpecial Diet: cardiac ACTIVITY: Activity Restrictions: Slowly Increase Activity SCHOOL/WORK RELEASE May return to School/Work with: With Restrictions MILLER CLANCY December 18, 2016 20:02
[2016-12-18] MEDS ORDERED: ASPI325T4 PO (20:06)
[2016-12-18] MEDS ORDERED: ATOR80TA75 PO (20:06)
[2016-12-18] MEDS ORDERED: BISA5TAB6 PO (20:06)
[2016-12-18] MEDS ORDERED: DOCU-216 PO (20:06)
[2016-12-18] MEDS ORDERED: TYL650R PR (20:06)
[2016-12-18] MEDS ORDERED: GABA300C16 PO (20:06)
[2016-12-18] MEDS ORDERED: BENG30OI TOP (20:09)
[2016-12-18] MEDS ORDERED: UDMOM PO (20:09)
[2016-12-18] MEDS ORDERED: PANT40VI7 IV (20:09)
[2016-12-18] MEDS ORDERED: LORA1TAB PO (20:09)
[2016-12-18] MEDS ORDERED: ACET325T40 PO (20:11)
[2016-12-18] MEDS: ATORVASTATIN 80 MG TAB PO SCH (20:32)
--- NOTE | 2016-12-21 18:00 | QN ---
Documentation Comment [id number] LUIS TAY MD December 21, 2016 18:00
--- NOTE | 2016-12-21 19:10 | DS ---
Date/Time of Note Date/Time of Note DATE: 12/21/16 TIME: 19:06 Discharge Summary Admission/Discharge Info Admit Date/Time December 15, 2016 at 19:59 Discharge Date/Time December 18, 2016 at 21:55 Final Diagnosis Acute ischemic stroke Patient Condition: Good Consults Karon, neurology, Dr Noland cardiology Procedures 2 D echocardiogram Hx of Present Illness pt was admitted with acute ischemic stroke, her statins were adjusted to maximum and antiplatelets medication added. Function restored except lower extremities paresthesia. Pt continued ST/OT in rehab center Hospital Course 1.CVA 2.HTN 3. DYSLIPEDEMIA Home Meds Active Scripts Acetaminophen (MAPAP) 325 Mg Tablet, 650 MG PO Q6H Y for PAIN LEVEL 1-3 OR FEVER for 5 Days, TAB Prov:MILLER CLANCY 12/18/16 Lorazepam* (Lorazepam*) 1 Mg Tablet, 1 MG PO Q4H Y for ANXIETY for 5 Days, TAB Prov:MILLER CLANCY 12/18/16 Magnesium Hydroxide* (Funez' MOM*) 30 Ml Susp, 30 ML PO DAILY Y for CONSTIPATION for 5 Days Prov:MILLER CLANCY 12/18/16 Menthol/Methyl Salicylate (Analgesic [place]) 28 Gm Oint...g., 1 APPLIC TOP TID Y for PAIN for 5 Days Prov:MILLER CLANCY 12/18/16 Pantoprazole* (Protonix* IV) 40 Mg Soln, 40 MG IV DAILY@06 for 5 Days change to po please Prov:MILLER CLANCY 12/18/16 Gabapentin* (Gabapentin*) 300 Mg Capsule, 300 MG PO QID for 5 Days, CAP Prov:MILLER CLANCY 12/18/16 Docusate Sodium (Dok) 100 Mg Capsule, 100 MG PO Q12H Y for CONSTIPATION for 5 Days, CAP Prov:MILLER LCANCY 12/18/16 Bisacodyl* (Bisacodyl*) 5 Mg Tablet.dr, 5 MG PO DAILY Y for CONSTIPATION for 5 Days Prov:MILLER CLANCY 12/18/16 Atorvastatin* (Atorvastatin*) 80 Mg Tablet, 80 MG PO HS for 5 Days, TAB Prov:MILLER CLANCY 12/18/16 Aspirin (Aspirin Lite-Coat) 325 Mg Tablet, 325 MG PO DAILY for 5 Days, TAB Prov:MILLER CLANCY 12/18/16 Acetaminophen* (Acephen*) 650 Mg Supp, 650 MG HI Q6H Y for PAIN LEVEL 1-3 OR FEVER for 5 Days, SUPP Prov:MILLER CLANCY 12/18/16 Reported Medications Ferrous Sulfate* (Ferrous Sulfate*) 325 Mg Tabec, 325 MG PO BID, TAB 12/15/16 Lorazepam* (Lorazepam*) 1 Mg Tablet, 1 MG PO Q8 Y for ANXIETY, #60 TAB 12/15/16 Naproxen* (Naprosyn*) 500 Mg Tablet, 500 MG PO BID, TAB 07/07/14 Levothyroxine Sodium* (Levoxyl*) 100 Mcg Tablet, 100 MCG PO AC BREAKFAST, TAB 07/07/14 Discontinued Reported Medications Simvastatin (Simvastatin) 20 Mg Tablet, 20 MG PO HS, TAB 07/07/14 Follow-up Plan continue rehabilitatiications Primary Care Provider Angelito Solano Time spent on discharge: > 30 minutes MILLER CLANCY December 21, 2016 19:10
--- NOTE | 2016-12-22 07:01 | DS ---
DATE OF ADMISSION: 12/15/2016 DATE OF DISCHARGE: 12/18/2016 HOSPITAL COURSE: The patient is a 46-year-old female who was admitted with acute stroke, was seen by Dr. Scott in consultation, 2-D echo was done by Dr. Noland. Ejection fraction 55% to 60%. The patient was seen by Dr. Scott, as well as underwent a carotid duplex scan that showed normal examination. The patient also had a head CTA that shows unremarkable CT angiogram of the brain. Brain MRI scan shows acute ischemic infarction within the right posterior femoral artery territory involving the posterior hippocampus in the medial right temporal lobe, right thalamus, and right selenium of the corpus callosum, local mass effect. The patient also had a neck CT angiogram that is unremarkable. The patient has an MRI of brain as well as ____ and the patient was cleared by the oracle drm consultant to be discharged to acute rehab. DIAGNOSES AT THE TIME OF DISCHARGE: Include: 1. Acute cerebrovascular accident, left-sided weakness. 2. Anemia. 3. Status post hypokalemia. 4. Hypertension 5. Dyslipidemia. DISCHARGE MEDICATIONS: Please see the attached list for list of the medications. Continue on: 1. Tylenol. 2. Aspirin. 3. Lipitor. 4. ppi. 5. Gabapentin. 6. Lorazepam. 7. Magnesium oxide. 8. Protonix. DISPOSITION: The patient is stable at the time of discharge. Dictated By: LUIS TAY MD BS/NTS Conf#: [id number] DID#: [id number] MTDD
== END 2016-12-18 21:55 | DRG 69 ==
LOC: E/R 14:06 → TEL 19:59
PROVIDERS: ADMIT Internal Medicine Nephrology; ATTEND Internal Medicine Nephrology
DX: I67.82 Cerebral ischemia (principal); N30.00 Acute cystitis without hematuria; E86.0 Dehydration; E87.6 Hypokalemia; D64.9 Anemia, unspecified; R29.706 NIHSS score 6; R20.0 Anesthesia of skin; R27.8 Other lack of coordination; E03.9 Hypothyroidism, unspecified; M19.90 Unspecified osteoarthritis, unspecified site; F41.9 Anxiety disorder, unspecified
CPT/HCPCS: 36415; 70496; 70498; 70551; 72141; 74000; 80048; 80053; 80061; 81003; 82550; 82553; 84484; 85025; 85610; 85730; 92610; 93005; 93306; 93880; 96365; 96375; 96376; 97110; 97116; 97163; 97530; C9113; J0696; J2060; J3480; Q9967

== ENCOUNTER 2016-12-18 16:14 | Inpatient (IN) | payer OTHER ==
[~2016-12-18] VITALS: Ht 172.7 cm; Wt 94.2 kg
[~2016-12-18 16:14] MED LIST changes: +FER325 PO; +LORA1TAB PO; -SIMV20TA2 PO
[2016-12-18] MEDS ORDERED: DOCU-216 PO (20:06)
[2016-12-18] MEDS ORDERED: TYL650R PR (20:06)
[2016-12-18] MEDS ORDERED: BISA5TAB6 PO (20:06)
[2016-12-18] MEDS ORDERED: ASPI325T4 PO (20:06)
[2016-12-18] MEDS ORDERED: GABA300C16 PO (20:06)
[2016-12-18] MEDS ORDERED: ATOR80TA75 PO (20:06)
[2016-12-18] MEDS ORDERED: UDMOM PO (20:09)
[2016-12-18] MEDS ORDERED: LORA1TAB PO (20:09)
[2016-12-18] MEDS ORDERED: BENG30OI TOP (20:09)
[2016-12-18] MEDS ORDERED: PANT40VI7 IV (20:09)
[2016-12-18] MEDS ORDERED: ACET325T40 PO (20:11)
[2016-12-18 22:10] VITALS: BP 123/85; PULSE 87; RESP 18
[2016-12-18 22:20] VITALS: Ht 172.7 cm; Wt 94.2 kg
[2016-12-18] MEDS ORDERED: BISACODYL (EC) 5 MG TAB PO PRN (23:45)
[2016-12-18] MEDS ORDERED: MENTHOL/METH SALICYLATE 30 GM OINT TOP PRN (23:45)
[2016-12-18] MEDS ORDERED: DOCUSATE SODIUM 100 MG CAP PO PRN (23:45)
[2016-12-19] MEDS: LEVOTHYROXINE 100 MCG TAB PO SCH (06:59)
[2016-12-19] MEDS: PANTOPRAZOLE (EC) 40 MG TAB PO SCH (06:59)
[2016-12-19 07:16] LABS: ADD SCAN DIFF NO
[2016-12-19 07:20] LABS: BASOPHILS % 0.5 % (0.0-2.0); EOSINOPHILS # 0.5 10^3/ul (0.0-0.5); EOSINOPHILS % 5.9 % (0.0-7.0); HEMATOCRIT 33.3 % (37.0-47.0); HEMOGLOBIN 10.1 g/dl (12.0-16.0); LYMPHOCYTES # 1.8 10^3/ul (0.8-2.9); LYMPHOCYTES % 21.6 % (15.0-51.0); MEAN CORPUSCULAR HGB CONC 30.3 g/dl (32.0-37.0); MEAN CORPUSCULAR VOLUME 79.1 fl (82.0-101.0); MONOCYTE # 0.5 10^3/ul (0.3-0.9); MONOCYTES % 6.7 % (0.0-11.0); NEUTROPHIL # 5.2 10^3/ul (1.6-7.5); NEUTROPHILS % 64.4 % (39.0-77.0); PLATELET COUNT 385 10^3/UL (140-415); RED BLOOD COUNT 4.21 10^6/ul (4.20-5.40); RED CELL DISTRIBUTION WIDTH 15.8 % (11.5-14.5); WHITE BLOOD COUNT 8.1 10^3/ul (4.8-10.8)
[2016-12-19 07:44] VITALS: BP 107/59; PULSE 90; RESP 20
[2016-12-19 07:47] LABS: POTASSIUM 3.9 mmol/L (3.5-5.1)
[2016-12-19 07:50] LABS: ALBUMIN/GLOBULIN RATIO 1.25; BILIRUBIN,INDIRECT 0.3 mg/dl (0-1.1); BILIRUBIN,TOTAL 0.3 mg/dl (0.2-1.3); CALCIUM 9.5 mg/dl (8.4-10.2); CREATININE 0.61 mg/dl (0.44-1.00); TOTAL PROTEIN 7.2 g/dl (6.1-8.1)
[2016-12-19] MEDS: GABAPENTIN 300 MG CAP PO SCH ×3 (08:32→20:43)
[2016-12-19] MEDS: DOCUSATE SODIUM 100 MG CAP PO SCH ×2 (08:32→21:00)
[2016-12-19] MEDS: FERROUS SULFATE (EC) 325 MG TAB PO SCH ×2 (08:32→21:00)
[2016-12-19] MEDS ORDERED: ASPIRIN 325 MG TAB PO SCH (09:00)
[2016-12-19 09:20] LABS: ADD UMIC NO; URINE BILIRUBIN (Dip) NEGATIVE (NEGATIVE); URINE BLOOD (Dip) NEGATIVE (NEGATIVE); URINE COLOR LT. YELLOW (YELLOW); URINE GLUCOSE (Dip) NEGATIVE (NEGATIVE); URINE KETONES (Dip) NEGATIVE (NEGATIVE); URINE LEUKOCYTE ESTERASE (Dip) NEGATIVE (NEGATIVE); URINE NITRITE (Dip) NEGATIVE (NEGATIVE); URINE TOTAL PROTEIN (Dip) NEGATIVE (NEGATIVE); URINE UROBILINOGEN (Dip) 0.2 E.U./dL (0.1-1.0)
--- NOTE | 2016-12-19 10:53 | HP ---
DATE OF ADMISSION: 12/18/2016 PHYSICAL MEDICINE AND REHABILITATION HISTORY AND PHYSICAL AND PHYSICIAN POST ADMISSION ASSESSMENT DATE OF VISIT: 12/19/2016. REHABILITATION IMPAIRMENT GROUP: Right-sided cerebrovascular accident, with left side body involvement. CHIEF COMPLAINT: Impaired mobility and left-sided tingling. HISTORY OF PRESENT ILLNESS: This is a 46-year-old right-handed female with a past medical history significant for anemia, hypothyroidism, hypertension, and dyslipidemia who initially presented to an outside hospital after developing left-sided numbness and tingling. At the time she was reportedly told she was anxious and discharged home. She continued to have persistent symptoms and presented to [facility] ER, also reporting unsteadiness of her gait. She had MRI of her brain which showed acute ischemic infarcts in the right posterior cerebral artery territory involving the posterior hippocampus of the the medial right temporal lobe, right thalamus, and right splenium of the corpus callosum, minimal mass effect. She also had a cervical MRI which showed mild disk disease, mainly at C5-C6 with broad based disk extrusion contributing to moderate to severe spinal canal stenosis with flattening of the ventral spinal cord; Mild right and moderate to severe left foraminal stenosis; Posterior disk osteophyte complexes contribute to mild spinal canal narrowing at C4-C5 and C6-C7; multilevel foraminal stenosis. CT angio of the head and neck, as well as carotid ultrasound were done, which were unremarkable. The patient was evaluated by neurology and started on aspirin as well as Lipitor, for secondary stroke prevention. During the patient's hospital course she continued to report significant electrical sensation, numbness and tingling throughout the left side of her body and was started on gabapentin. She also reports some blurred vision since her stroke. The patient was evaluated by physical and occupational therapy. Currently she is requiring minimal to moderate assistance for many of her ADLs and her basic mobility and has been ambulating 60 feet with a standard walker. Due to the patient's overall functional decline from her baseline independent status and continued and ongoing medical comorbidities, she was thought to benefit from acute inpatient rehabilitation. PAST MEDICAL AND SURGICAL HISTORY: As stated in the history of present illness , including a history of anemia, hypothyroidism, hypertension, and dyslipidemia. FAMILY HISTORY: Reports noncontributory. SOCIAL HISTORY: Denies all current toxic habits. The patient lives with her and children in a one-story home. No stairs to enter. She reports she was completely independent for all functional mobility and self-care ADLs prior to hospitalization, did not require any assistive device for gait and was driving prior to hospitalization. MEDICATIONS ON ADMISSION: Reviewed in electronic medical records, includin. Lipitor 80 mg at bedtime. 2. Aspirin 325 mg oral daily. 3. Neurontin 300 mg oral 4 times daily. 4. Levothyroxine 100 mcg oral daily. 5. Protonix 40 mg daily. 6. BenGay as needed. 7. Milk of Magnesia as needed. 8. Ativan as needed. 9. Colace as needed. 10. Dulcolax suppository as needed. 11. Tylenol as needed. ALLERGIES: NO KNOWN DRUG ALLERGIES. LABORATORIES AND IMAGING: Reviewed in electronic medical records. Her admission labs today show hemoglobin 10.1, hematocrit 33.3, platelets 385. WBC 8.1. Sodium 139, potassium 3.9, BUN 11, creatinine 0.61, AST 20, ALT 39, alkaline phosphatase 53. Her urinalysis is clear. Negative nitrites, negative leukocyte esterase. Urine culture is pending. REVIEW OF SYSTEMS: CONSTITUTIONAL: Denies fevers or chills. No night sweats. EYES: Denies any new visual changes, but she does report some blurred vision in the bilateral eyes since her CVA. EARS, NOSE AND THROAT: She denies any difficulty swallowing. No choking or coughing with foods. RESPIRATORY: Denies shortness of breath. No cough. CARDIOVASCULAR: No chest pain, no palpitations. GENITOURINARY: Denies dysuria or hematuria. GASTROINTESTINAL: Denies abdominal pain. No nausea or vomiting. Her last reported bowel movement was yesterday, per nursing documentation. NEUROLOGIC: She has ongoing left-sided numbness and tingling. Denies new weakness. MUSCULOSKELETAL: Denies any muscle spasms. No joint pain. SKIN: Denies new rashes. No itching. PSYCHIATRIC: Denies history of depression. Review of systems is otherwise negative. PHYSICAL EXAMINATION: VITAL SIGNS: Blood pressure 107/59, heart rate 90, temperature 98.6 Fahrenheit , O2 saturation 97% on room air, respiratory rate 20. GENERAL: The patient is well-nourished, well-developed, awake, alert, in no acute distress. HEAD, EYES, EARS, NOSE, THROAT: Normocephalic, atraumatic. Mucous membranes moist. Extraocular muscles intact. NECK: Supple, nontender. RESPIRATORY: Lungs clear to auscultation. No crackles, no wheezing. CARDIOVASCULAR: Regular rate and rhythm, audible S1, S2. No distal edema. ABDOMEN: Soft, nontender, bowel sounds present. No masses palpated. EXTREMITIES: Calves are soft, nontender. No cyanosis, no distal edema. SKIN: Warm and dry. No rashes. PSYCHIATRIC: The patient is oriented to self, [facility], an December 2016. Affect is somewhat flat. NEUROLOGICAL/MUSCULOSKELETAL EXAMINATION: Her speech is overall fluent, with no significant word finding difficulties noted. She follows simple commands. Extraocular muscles are intact. Pupils equal, round, and reactive to light. There is a slight flattening of the left nasolabial fold, decreased sensation on the left side of her face, as well as left arm and left leg throughout. Tongue protrudes midline. Sternocleidomastoid and trapezius strength intact bilaterally. Strength is intact for the right upper and right lower extremities. Left upper and left lower extremities with slight weakness, overall 4 to 4+/5. Tone is within normal limits. No ankle clonus. Finger-to- nose testing reveals no dysmetria. IMPRESSION: 1. Acute ischemic infarcts involving the right posterior cerebral artery territory 2. Impaired mobility, gait and balance. 3. Impaired self-care activities of daily living. 4. Left hemisensory loss. 5. Mild left nondominant hemiparesis. 6. Impaired vision 7. Anemia. 8. Hypothyroidism. 9. Hypertension. 10. Dyslipidemia. 11. Neuropathic pain. 12. Multilevel cervical disc disease/spinal canal and neural foraminal stenosis PLAN: 1. The patient will be admitted for inpatient comprehensive interdisciplinary rehabilitation to address impairments in medical conditions listed above while assessing equipment needs and compensatory strategies, with coordinated interdisciplinary services that will include physical, occupational, and speech therapies and close monitoring and treatment, with 24-hour rehabilitation nursing. The patient is anticipated to be able to tolerate 3 hours daily for at least 5/7 days per week of therapies. This interdisciplinary program will be performed under the direction of a account executive key accounts. 2. Begin physical therapy for bed mobility, transfers, balance training, gait training with device as needed, lower extremity strengthening, range of motion, and coordination. 3. Begin occupational therapies for activities of daily living, functional transfers, patient education and adaptive equipment evaluation, upper extremity strengthening, range of motion, and coordination. 4. Speech therapy for full cognitive evaluation, as well as full dysphagia evaluation. 5. Rehabilitation nursing to provide the patient education regarding current medications as they relate to medical illness. Monitor pain, monitor bowel and bladder programs, and administer such programs and reinforce those activities with therapies. 6. Dr. Olivia and associates to follow for management of medical comorbidities. 7. For hypertension, currently her blood pressure appears to be controlled. We will closely monitor her blood pressures. 8. For anemia she is currently on iron supplementation. Continue to monitor hemoglobin and hematocrit. Internal medicine to follow. 9. For hypothyroidism will continue on levothyroxine supplementation. 10. For neuropathic pain, currently she is on Neurontin 300 mg q.i.d., dose was recently increased. We will continue to closely monitor her pain levels and slowly increase her dosing further as tolerated. Monitor for sedation. 11. For secondary stroke prevention, continue on the aspirin and Lipitor per neurology recommendations. 12. For gastrointestinal prophylaxis she is on Protonix. 13. Deep venous thrombosis prophylaxis per internal medicine. She is on aspirin. REHABILITATION GOALS: Improve bed mobility, transfers, gait and self-care ADLs to at least supervision level. ANTICIPATED DISPOSITION: To home with family. ESTIMATED LENGTH OF STAY: Approximately 10 to 14 days. Her case will be discussed with the weekly interdisciplinary conference. PROGNOSIS: At the current time, this inpatient hospital rehabilitation stay is medically necessary to achieve important health and functional goals. The patient requires frequent physician visits, 24-hour rehabilitation nursing, and a coordinated intensive rehabilitation program as described above to address complex medical nursing and rehabilitation needs. The patient has a good prognosis for benefiting from this program and returning to home and community. REHABILITATION PHYSICIAN POST-ADMISSION ASSESSMENT REVIEW: I have had the opportunity to examine the patient within 24 hours of admission and have reviewed the preadmission assessment and find it consistent with my examination and evaluation of the patient. I confirm that this patient is appropriate for admission and treatment in this inpatient rehabilitation hospital, needs intense interdisciplinary rehabilitation care, and is expected to achieve meaningful goals within a reasonable period of time that are consistent with the planned discharge disposition, as noted above. ADDENDUM: After the patient was evaluated and the patient began working with physical therapy, the patient reported increased paresthesias in the left side of her face and arm, with more sharp tingling pain than prior, and also feeling "pinching" sensation in left upper chest. Otherwise no new focal neurological changes or other associated symptoms. Vitals stable. Stat CT brain showed no acute changes. MRI Brain, EKG and cardiac enzymes were also ordered. Internal medicine and neurology were informed, currently recommend patient to remain in acute rehabilitation unit pending further test results. Will continue to closely monitor. Defer further medical management per internal medicine and neurology. Greater than 75 minutes spent on encounter, including face to face time with patient and in coordination of patient care. Dictated By: SOTO CAPPS MD, RA/GUILLERMINA Conf#: [id number] DID#: [id number] MTDD
[2016-12-19 11:45] VITALS: BP 114/77; PULSE 87
--- NOTE | 2016-12-19 12:16 | RADRPT ---
PROCEDURE: CT Brain without. CLINICAL INDICATION: Code stroke TECHNIQUE: CT of the brain was performed on a multidetector scanner without IV contrast. One or m ore of the following dose reduction techniques were used: automated exposure control, adjustment of the mA and/or kV according to patient size, use of iterative reconstruction technique. CTDI = 44.4 mGy. DLP = 630.2 mGy-cm. COMPARISON: MRI, 12/15/2016 FINDINGS: Lucency is seen in the medial right temporal lobe and right thalamus, compatible with subacute infar ct, unchanged in size when compared to the prior MRI. There is no acute intracranial hemorrhage, ma ss or midline shift. The ventricles and sulci are symmetric and normal in size and morphology. No abnormal intra-axial or extra-axial fluid collections are seen. Brainstem and posterior fossa struc tures are unremarkable. The osseous structures and visualized paranasal sinuses are unremarkable. The surrounding soft tissue scalp and bony calvarium are intact and normal. IMPRESSION: 1. There is stable appearance of subacute infarction the medial right temporal lobe and right thala mus. No CT evidence of new or enlarging infarct is identified. No intracranial hemorrhage, mass or midline shift is identified. A call report was made to [facility] on [facility] at 12/19/2016 12:15:39 PM. .Panfilo Quarles MD, MD Date Time Electronically viewed and signed by .Panfilo Quarles MD, on 12/19/2016 12:16 .R/
[2016-12-19 12:43] LABS: CREATINE KINASE 62 IU/L (23-200)
[2016-12-19 12:57] LABS: CK-MB < 0.22 ng/ml (0.0-2.4); TROPONIN-I < 0.012 ng/ml (0.00-0.12)
--- NOTE | 2016-12-19 14:46 | RADRPT ---
PROCEDURE: MR Brain noncontrast. CLINICAL INDICATION: Stroke. New symptoms. TECHNIQUE: Multiplanar multisequence noncontrast MRI of the brain was performed. COMPARISON: Noncontrast CT of the head from December 19, 2016. Noncontrast MRI of the brain from December 15, 2016. FINDINGS: There are acute / recent infarction again noted within the right thalamus as well as the right poste rior hippocampal body and right posterior medial temporal/occipital lobes. There are also acute / i nfarctions within the right splenium of the corpus callosum. This is not significantly changed in s ize compared to recent MRI. There is associated T2 FLAIR hyperintensity suggesting edema within thes e regions. There is no intracranial hemorrhage or extra-axial fluid collection. There is no midline shift. The brainstem is within normal limits. The posterior fossa is unremarkable. The normal intracranial, intravascular flow voids are preserved. There is mild to moderate bilateral ethmoid sinus mucosal thickening. There is mild left minimal ri ght maxillary sinus mucosal thickening. The orbits are grossly unremarkable. There is no destructive osseous lesion. IMPRESSION: No significant change. 1. Acute / recent right posterior cerebral artery territory infarctions as detailed above. 2. No interval acute / recent infarctions since prior MRI of the brain.. 3. No intracranial hemorrhage. Further findings as detailed above. RPTAT: HVF .Daniel Goins MD, Date Time Electronically viewed and signed by .Daniel Goins MD, on 12/19/2016 14:46 .F/
--- NOTE | 2016-12-19 15:28 | QN ---
Documentation Comment TRANFERRET TO REHAB FOR PTOT A/P CVA HTN ANXIETY PLAN PT OT LUIS TAY MD December 19, 2016 15:28
[2016-12-19] MEDS: LORAZEPAM 1 MG TAB PO PRN ×2 (18:33→22:25)
[2016-12-19 20:00] VITALS: BP_SYST 131; BP_SYST 136; BP_DIAS 59; BP_DIAS 77; RESP 18; RESP 20
[2016-12-19] MEDS: DIPYRIDAMOLE/ASPIRIN (SR) CAP PO SCH (21:00)
[2016-12-19] MEDS: ATORVASTATIN 80 MG TAB PO SCH (21:00)
[2016-12-19] MEDS: SENNA TAB PO SCH (21:00)
--- NOTE | 2016-12-19 21:39 | CONS ---
DATE OF ADMISSION: 12/18/2016 DATE OF CONSULTATION: 12/19/2016 REFERRING PHYSICIAN: Dr. Olivia. Thank you for asking me to see the patient with you. HISTORY OF PRESENT ILLNESS: The patient has a right posterior cerebral artery infarction with left- sided numbness and tingling in which the patient had a Code today, in which I got a call about her f or more evaluation and treatment. MRI repeated for her, which shows the right CHEMICAL PUMPER stroke, which she has, with no acute changes from the last one. PAST MEDICAL HISTORY: The patient has a past medical history of anemia, hypothyroidism, hypertensio n, dyslipidemia. CURRENT MEDICATIONS: Include: 1. Lipitor 18 mg once a day. 2. Aspirin 325 mg once a day. 3. Neurontin 300 mg 4 times a day 4. Levothyroxine 100 mcg once a day. 5. Protonix 40 mg once a day. 6. Bengay as needed. 7. Medical magnesium as needed. 8. Ativan as needed. 9. Colace as needed. 10. Dulcolax as needed. 11. Tylenol as needed. PHYSICAL EXAMINATION: GENERAL: On exam today, the patient is alert, awake, oriented, follows simple commands. CRANIAL NERVES: Cranial nerve II: Pupils equal on both sides, reactive to light. Cranial nerves I II, IV, and : Extraocular muscles intact. Cranial nerve V: Gross sensation to face. Cranial ne rve VII: Symmetrical face. Cranial nerve VIII: Decreased hearing bilaterally. Cranial nerve X: Elevates palate. Cranial nerve XI: Elevates shoulder 5/5. Cranial nerve XII: Straight tongue. MOTOR: Left side is 4/5. Sensation decreased on the left side for light touch and temperature. COORDINATION: the left side. HEART: Regular rate and rhythm. LUNGS: Equal breath sounds. ABDOMEN: Soft, relaxed, nondistended. No tenderness. ASSESSMENT AND PLAN: 1. The patient is 46 years old with acute ischemic stroke. I am going to discontinue the aspirin a nd start the patient on Aggrenox twice a day to keep the patient away from a stroke, as prophylaxis for now. Will follow up the patient with physical therapy and rehabilitation. 2. Gait difficulty, probably secondary to stroke. Follow up the patient with gait balance and eval uation by physical therapy. 3. History of hypertension. Keep the blood pressure at the level of 140/90. 4. Dyslipidemia. Keep the patient on Lipitor 80 mg. Follow up the patient with lipid panel. 5. Peripheral neuropathy. Follow up the patient with nerve conduction study as outpatient when she is stable. Again, thank you for asking me to see the patient with you. Dictated By: LIV MACKEY/GUILLERMINA Conf#: [id number] DID#: [id number]
[2016-12-19] MEDS: ACETAMINOPHEN 325 MG TAB PO PRN (22:28)
[2016-12-20] MEDS: LORAZEPAM 1 MG TAB PO PRN ×2 (02:36→15:11)
[2016-12-20] MEDS: LEVOTHYROXINE 100 MCG TAB PO SCH (06:57)
[2016-12-20] MEDS: PANTOPRAZOLE (EC) 40 MG TAB PO SCH (06:57)
[2016-12-20 07:06] LABS: ANION GAP 11 (8-16); BLOOD UREA NITROGEN 12 mg/dl (7-20); CALCIUM 9.8 mg/dl (8.4-10.2); CARBON DIOXIDE 27 mmol/L (21-31); CHLORIDE 100 mmol/L (97-110); CREATININE 0.57 mg/dl (0.44-1.00); GLUCOSE 134 mg/dl (70-220); POTASSIUM 4.2 mmol/L (3.5-5.1); SODIUM 134 mmol/L (135-144)
[2016-12-20 07:25] LABS: TROPONIN-I < 0.012 ng/ml (0.00-0.12)
[2016-12-20 07:30] VITALS: BP 105/64; RESP 18
[2016-12-20] MEDS: GABAPENTIN 300 MG CAP PO SCH ×3 (09:06→20:13)
[2016-12-20] MEDS: LACTULOSE 30ML CUP PO PRN (09:06)
[2016-12-20] MEDS: FERROUS SULFATE (EC) 325 MG TAB PO SCH ×2 (09:06→20:13)
[2016-12-20] MEDS: DIPYRIDAMOLE/ASPIRIN (SR) CAP PO SCH ×2 (09:06→20:13)
[2016-12-20] MEDS: DOCUSATE SODIUM 100 MG CAP PO SCH ×2 (09:06→20:14)
--- NOTE | 2016-12-20 09:50 | PN ---
Date/Time of Note Date/Time of Note DATE: 12/20/16 TIME: 09:42 Assessment/Plan VTE Prophylaxis VTE Prophylaxis Intervention: other Lines/Catheters IV Catheter Type (from Nrsg): Saline Lock Assessment/Plan Assessment/Plan 1. Acute ischemic infarcts involving the right posterior cerebral artery territory with mild left nondominant hemiparesis, left hemisensory loss, impaired vision, impaired mobility/gait/ADLs. Repeat MRI Brain yesterday due to episode of increased paresthesias left face/arm, without significant change. Appreciate neurology recommendations, has been switched to aggrenox, continue statin. Defer any further medical management per neurology. Continue to closely monitor neurological status. Continue PT/OT. Mod assist for transfers and gait with FWW. 2. Neuropathic pain, status post CVA. Also with evidence of cervical degenerative disc disease, spinal canal and neuralforaminal stenosis on MRI cervical spine. Gabapentin dose has been increased, monitor response. Adjust further as needed. Monitor for sedation. 3. Anemia. On iron supplementation. Continue to monitor hemoglobin/hematocrit. 4. Hypothyroidism. On levothyroxine. 5. Dyslipidemia. Continue statin. 6. Hypertension. BP controlled. Continue to monitor. 7. Constipation. On bowel regimen. Subjective 24 Hr Interval Summary Free Text/Dictation Rehab progress note Subjective: Reports moderate neuropathic pain, mostly in left arm. No new paresthesias or new weakness. ROS: Denies current headache, no dizziness, no new visual changes, no chest pain , no palpitations, no shortness of breath, no nausea, no vomiting, no abdominal pain. Reports constipation. Exam/Review of Systems Vital Signs Vitals Vital Signs Date Time Temp Pulse Resp B/P Pulse Ox O2 Delivery O2 Flow Rate FiO2 12/19/16 20:00 98.2 80 18 131/77 98 12/19/16 07:44 Room Air Intake and Output 12/19/16 12/19/16 12/20/16 15:00 23:00 07:00 Intake Total 840 ml 490 ml 360 ml Output Total 450 ml Balance 390 ml 490 ml 360 ml Exam General: Awake, alert, no acute distress CV: Regular rate, s1s2 Lungs: Respirations nonlabored, no wheezing Abdomen soft, nontender Extremities without cyanosis, no new swelling Neuro: No new focal changes. Follows simple commands. Results Result Diagram: 12/19/16 0618 12/20/16 0553 Results 24 hrs Laboratory Tests Test 12/19/16 12:00 12/20/16 05:53 Creatine Kinase 62 Creatine Kinase Index 0.4 Creatinine Kinase MB (Mass) < 0.22 Troponin I < 0.012 < 0.012 Sodium Level 134 L Potassium Level 4.2 Chloride Level 100 Carbon Dioxide Level 27 Anion Gap 11 Blood Urea Nitrogen 12 Creatinine 0.57 Glucose Level 134 Calcium Level 9.8 Medications Medications Current Medications Acetaminophen (Tylenol Tab) 650 mg Q6H PRN PO PAIN AND OR ELEVATED TEMP Last administered on 12/19/16 22:28; Admin Dose 650 MG; Start 12/18/16 at 23:45 Atorvastatin Calcium (Lipitor) 80 mg DAILY@21 PO Last administered on 21:00; Admin Dose 80 MG; Start 12/19/16 at 21:00 Bisacodyl (Dulcolax) 5 mg DAILY PRN PO CONSTIPATION; Start 12/18/16 at 23:45 Docusate Sodium (Colace) 100 mg Q12H PRN PO CONSTIPATION; Start 12/18/16 at 23: 45 Ferrous Sulfate (Ferrous Sulfate (Ec)) 325 mg BID PO Last administered on 09:06; Admin Dose 325 MG; Start 12/19/16 at 09:00 Lorazepam (Ativan) 1 mg Q4H PRN PO ANXIETY Last administered on 12/20/16 02:36 ; Admin Dose 1 MG; Start 12/18/16 at 23:45 Magnesium Hydroxide (Milk Of Mag) 30 ml DAILY PRN PO CONSTIPATION; Start at 23:45 Menthol/Methyl Salicylate (Noble Proctor) 1 applic TID PRN TOP TOPICALLY PRN MUSCLE PAIN; Start 12/18/16 at 23:45 Pantoprazole (Protonix Tab) 40 mg DAILY@06 PO Last administered on 12/20/16 06 :57; Admin Dose 40 MG; Start 12/19/16 at 06:00 Docusate Sodium (Colace) 100 mg BID PO Last administered on 12/20/16 09:06; Admin Dose 100 MG; Start 12/19/16 at 09:00 Senna (Senokot) 1 tab HS PO Last administered on 12/19/16 21:00; Admin Dose 1 TAB; Start 12/19/16 at 21:00 Lactulose (Enulose) 20 gm DAILY PRN PO CONSTIPATION Last administered on 09:06; Admin Dose 20 GM; Start 12/19/16 at 01:45 Gabapentin (Neurontin) 600 mg TID PO Last administered on 12/20/16 09:06; Admin Dose 600 MG; Start 12/19/16 at 21:00 Dipyridamole/ Aspirin (Aggrenox) 1 cap BID PO Last administered on 12/20/16 09 :06; Admin Dose 1 CAP; Start 12/19/16 at 21:00 SOTO CAPPS December 20, 2016 09:50
[2016-12-20] MEDS: ACETAMINOPHEN 325 MG TAB PO PRN ×2 (12:12→18:49)
--- NOTE | 2016-12-20 17:30 | CONS ---
Date/Time of Note Date/Time of Note DATE: 12/20/16 TIME: 17:29 Assessment/Plan Assessment/Plan Chief Complaint/Hosp Course CVA HTN PLAN PT OT Problems: Consultation Date/Type/Reason Admit Date/Time December 18, 2016 at 22:00 Initial Consult Date Type of Consultation: RENAL 24 HR Interval Summary Constitutional: no complaints Exam/Review of Systems Vital Signs Vitals Vital Signs Date Time Temp Pulse Resp B/P Pulse Ox O2 Delivery O2 Flow Rate FiO2 12/20/16 07:30 98.1 87 18 105/64 96 12/19/16 07:44 Room Air Intake and Output 12/19/16 12/19/16 12/20/16 15:00 23:00 07:00 Intake Total 840 ml 490 ml 360 ml Output Total 450 ml Balance 390 ml 490 ml 360 ml Exam Cardiovascular: regular rate and rhythm Gastrointestinal: soft Musculoskeletal: nl extremities to inspection Neurological: other (NO CHANGE) Results Result Diagram: 12/19/16 0618 12/20/16 0553 Results 24 hrs Laboratory Tests Test 12/20/16 05:53 Sodium Level 134 L Potassium Level 4.2 Chloride Level 100 Carbon Dioxide Level 27 Anion Gap 11 Blood Urea Nitrogen 12 Creatinine 0.57 Glucose Level 134 Calcium Level 9.8 Troponin I < 0.012 Medications Medications Current Medications Acetaminophen (Tylenol Tab) 650 mg Q6H PRN PO PAIN AND OR ELEVATED TEMP Last administered on 12/20/16 12:12; Admin Dose 650 MG; Start 12/18/16 at 23:45 Atorvastatin Calcium (Lipitor) 80 mg DAILY@21 PO Last administered on 21:00; Admin Dose 80 MG; Start 12/19/16 at 21:00 Bisacodyl (Dulcolax) 5 mg DAILY PRN PO CONSTIPATION; Start 12/18/16 at 23:45 Docusate Sodium (Colace) 100 mg Q12H PRN PO CONSTIPATION; Start 12/18/16 at 23: 45 Ferrous Sulfate (Ferrous Sulfate (Ec)) 325 mg BID PO Last administered on 09:06; Admin Dose 325 MG; Start 12/19/16 at 09:00 Lorazepam (Ativan) 1 mg Q4H PRN PO ANXIETY Last administered on 12/20/16 15:11 ; Admin Dose 1 MG; Start 12/18/16 at 23:45 Magnesium Hydroxide (Milk Of Mag) 30 ml DAILY PRN PO CONSTIPATION; Start at 23:45 Menthol/Methyl Salicylate (Noble Proctor) 1 applic TID PRN TOP TOPICALLY PRN MUSCLE PAIN; Start 12/18/16 at 23:45 Pantoprazole (Protonix Tab) 40 mg DAILY@06 PO Last administered on 12/20/16 06 :57; Admin Dose 40 MG; Start 12/19/16 at 06:00 Docusate Sodium (Colace) 100 mg BID PO Last administered on 12/20/16 09:06; Admin Dose 100 MG; Start 12/19/16 at 09:00 Senna (Senokot) 1 tab HS PO Last administered on 12/19/16 21:00; Admin Dose 1 TAB; Start 12/19/16 at 21:00 Lactulose (Enulose) 20 gm DAILY PRN PO CONSTIPATION Last administered on 09:06; Admin Dose 20 GM; Start 12/19/16 at 01:45 Gabapentin (Neurontin) 600 mg TID PO Last administered on 12/20/16 15:11; Admin Dose 600 MG; Start 12/19/16 at 21:00 Dipyridamole/ Aspirin (Aggrenox) 1 cap BID PO Last administered on 12/20/16 09 :06; Admin Dose 1 CAP; Start 12/19/16 at 21:00 LUIS TAY MD December 20, 2016 17:30
[2016-12-20 20:00] VITALS: BP 116/64; PULSE 88; RESP 18
[2016-12-20] MEDS: ATORVASTATIN 80 MG TAB PO SCH (20:13)
[2016-12-20] MEDS: MAGNESIUM HYDROXIDE 30ML CUP PO PRN (20:13)
[2016-12-20] MEDS: SENNA TAB PO SCH (20:14)
--- NOTE | 2016-12-20 20:35 | CONS ---
DATE OF ADMISSION: 12/18/2016 DATE OF CONSULTATION: HISTORY OF PRESENT ILLNESS: The patient is a 46-year-old with right posterior cerebral artery strok e in which the patient admitted to acute rehab for continuation of her treatment. The patient had n umbness in her left side which had CAT scan and MRI shows no acute change from previous one in which they switched the patient from aspirin to Aggrenox for suspected underlying TIA which is better for stroke prophylaxis, to continue the patient's Aggrenox. PAST MEDICAL HISTORY: In the form of anemia, hypothermia, hypertension, dyslipidemia. CURRENT MEDICATIONS: Include: 1. Lipitor 80 mg once a day. 2. Senna 1 tablet at night as needed. 3. Neurontin 600 mg 3 times a day. 4. Aggrenox 1 tablet twice a day. 5. Ferrous sulfate 325 mg once a day. 6. Colace 100 mg once a day. 7. Synthroid 100 mcg once a day. 8. Protonix 40 mg once a day. 9. Lactulose 20 mg once a day. 10. Tylenol 650 mg once a day. 11. Ativan 1 mg every 4 hours as needed. 12. Milk of magnesium 30 mL for constipation as needed once a day. 13. Noble-Proctor 1 application topical for muscle pain as needed. PHYSICAL EXAMINATION: GENERAL: On exam today, the patient is alert, awake, following simple commands, accompanied by her family. CRANIAL NERVES: Cranial nerve II: Pupils equal on both eyes, reactive to light. Cranial nerve III , IV, and : Extraocular muscles intact. Cranial nerve V: Equal sensation to face. Cranial nerv e VII: Symmetrical face. Cranial nerve VIII: Decreased hearing bilaterally. Cranial nerves IX, X : Elevates palate. Cranial nerve XI: Elevates shoulders, 5/5. Cranial nerve XII: Straight tongu e. MOTOR: Left side is 4/5. SENSATION: Decreased on the left side for light touch and temperature. COORDINATION: ____ on the left side. HEART: With regular rate and rhythm. LUNGS: Equal breath sounds. ABDOMEN: Soft, relaxed, nondistended, nontender. ASSESSMENT AND PLAN: 1. The patient is a 46-year-old with acute onset of posterior cerebral stroke in which we started t he patient on Aggrenox twice a day and discontinued the aspirin. We keep the patient on the acute r ehabilitation for physical therapy and occupational therapy. 2. Gait difficulty probably secondary to stroke. Follow up the patient with gait, balance. 3. History of hypertension. Keep the blood pressure level, 140/90. 4. History of dyslipidemia. Keep the patient on Lipitor 80 mg once a day. 5. Peripheral neuropathy. The patient on Neurontin 600 mg every 8 hours as needed. Again, thank you for asking me to see the patient with you. Dictated By: LIV NULL MD NA/NTS Conf#: [id number] DID#: [id number] CC: IAN NO MD; LUIS TAY MD;*EndCC*
[2016-12-21] MEDS: ACETAMINOPHEN 325 MG TAB PO PRN ×2 (05:09→11:09)
[2016-12-21] MEDS: PANTOPRAZOLE (EC) 40 MG TAB PO SCH (05:09)
[2016-12-21] MEDS: LEVOTHYROXINE 100 MCG TAB PO SCH (05:53)
[2016-12-21 08:00] VITALS: BP 83/54; PULSE 84; RESP 18
[2016-12-21 08:15] VITALS: BP 99/66
[2016-12-21] MEDS: DOCUSATE SODIUM 100 MG CAP PO SCH ×2 (08:38→20:25)
[2016-12-21] MEDS: FERROUS SULFATE (EC) 325 MG TAB PO SCH ×2 (08:38→20:26)
[2016-12-21] MEDS: GABAPENTIN 300 MG CAP PO SCH ×3 (08:38→20:25)
[2016-12-21] MEDS: DIPYRIDAMOLE/ASPIRIN (SR) CAP PO SCH ×2 (08:38→20:25)
[2016-12-21 08:44] LABS: CALCIUM 9.8 mg/dl (8.4-10.2); CREATININE 0.67 mg/dl (0.44-1.00); POTASSIUM 4.2 mmol/L (3.5-5.1)
[2016-12-21 08:45] VITALS: BP 103/64
[2016-12-21] MEDS: PREGABALIN 50 MG CAP PO SCH ×2 (11:43→20:25)
[2016-12-21] MEDS: HYDROCODONE/APAP (5/325) TAB PO PRN ×2 (11:45→15:21)
--- NOTE | 2016-12-21 11:54 | CONS ---
Date/Time of Note Date/Time of Note DATE: 12/21/16 TIME: 11:54 Consult Date/Type/Reason Admit Date/Time December 18, 2016 at 22:00 Initial Consult Date Type of Consultation: RENAL Objective Vital Signs Date Time Temp Pulse Resp B/P Pulse Ox O2 Delivery O2 Flow Rate FiO2 12/20/16 20:00 98.5 88 18 116/64 96 Room Air Intake and Output 12/20/16 12/20/16 12/21/16 15:00 23:00 07:00 Intake Total 360 ml Balance 360 ml INTERDISCIPLINARY TEAM CONFERENCE BOWEL- Cont BLADDER-Cont SKIN- intact OT- DRESSING- min/mod BATHING-min/mod TOILETING-min/mod PT- BED MOBILITY-mod TRANSFERS-mod AMBULATION-mod 30 feet SPEECH- COGNITION-RI DYPHAGIA-soft diet A/P- Interdisciplinary team conference held today. Please see interdisciplinary sheet. Working toward d.c. on 12/24 with post discharge follow up of physical therapy, occupational therapy. Results/Medications Result Diagram: 12/19/16 0618 12/21/16 0807 Results 24 hrs Laboratory Tests Test 12/21/16 08:07 Sodium Level 136 Potassium Level 4.2 Chloride Level 101 Carbon Dioxide Level 28 Anion Gap 11 Blood Urea Nitrogen 16 Creatinine 0.67 Glucose Level 121 Calcium Level 9.8 Medications Current Medications Acetaminophen (Tylenol Tab) 650 mg Q6H PRN PO PAIN AND OR ELEVATED TEMP Last administered on 12/21/16 05:09; Admin Dose 650 MG; Start 12/18/16 at 23:45 Atorvastatin Calcium (Lipitor) 80 mg DAILY@21 PO Last administered on 20:13; Admin Dose 80 MG; Start 12/19/16 at 21:00 Bisacodyl (Dulcolax) 5 mg DAILY PRN PO CONSTIPATION; Start 12/18/16 at 23:45 Docusate Sodium (Colace) 100 mg Q12H PRN PO CONSTIPATION; Start 12/18/16 at 23: 45 Ferrous Sulfate (Ferrous Sulfate (Ec)) 325 mg BID PO Last administered on 08:38; Admin Dose 325 MG; Start 12/19/16 at 09:00 Lorazepam (Ativan) 1 mg Q4H PRN PO ANXIETY Last administered on 12/20/16 15:11 ; Admin Dose 1 MG; Start 12/18/16 at 23:45 Magnesium Hydroxide (Milk Of Mag) 30 ml DAILY PRN PO CONSTIPATION Last administered on 12/20/16 20:13; Admin Dose 30 ML; Start 12/18/16 at 23:45 Menthol/Methyl Salicylate (Noble Proctor) 1 applic TID PRN TOP TOPICALLY PRN MUSCLE PAIN; Start 12/18/16 at 23:45 Pantoprazole (Protonix Tab) 40 mg DAILY@06 PO Last administered on 12/21/16 05 :09; Admin Dose 40 MG; Start 12/19/16 at 06:00 Docusate Sodium (Colace) 100 mg BID PO Last administered on 12/21/16 08:38; Admin Dose 100 MG; Start 12/19/16 at 09:00 Senna (Senokot) 1 tab HS PO Last administered on 12/20/16 20:14; Admin Dose 1 TAB; Start 12/19/16 at 21:00 Lactulose (Enulose) 20 gm DAILY PRN PO CONSTIPATION Last administered on 09:06; Admin Dose 20 GM; Start 12/19/16 at 01:45 Gabapentin (Neurontin) 600 mg TID PO Last administered on 12/21/16 08:38; Admin Dose 600 MG; Start 12/19/16 at 21:00 Dipyridamole/ Aspirin (Aggrenox) 1 cap BID PO Last administered on 12/21/16 08 :38; Admin Dose 1 CAP; Start 12/19/16 at 21:00 Pregabalin (Lyrica) 50 mg BID PO Last administered on 12/21/16 11:43; Admin Dose 50 MG; Start 12/21/16 at 11:30 Acetaminophen/ Hydrocodone Bitart ([place] (5/325)) 1 tab Q4H PRN PO PAIN Last administered on 12/21/16 11:45; Admin Dose 1 TAB; Start 12/21/16 at 11:30 IAN NO MD December 21, 2016 11:54 IAN NO MD December 21, 2016 11:54
--- NOTE | 2016-12-21 14:22 | RADRPT ---
Vent Rate: 82 bpm RR Interval: 0 msec MS Interval: 154 msec QRS Duration: 86 msec QT Interval: 374 msec QTC Interval: 436 msec P-R-T [place]: 32 - 72 - 64 degrees Normal sinus rhythm Normal ECG Electronically Signed By: King [place] [id number]
--- NOTE | 2016-12-21 17:56 | PN ---
Date/Time of Note Date/Time of Note DATE: 12/21/16 TIME: 17:55 Assessment/Plan VTE Prophylaxis VTE Prophylaxis Intervention: other Lines/Catheters IV Catheter Type (from Nrs): Saline Lock Assessment/Plan Chief Complaint/Hosp Course CVA HTN PLAN PT OT SCAN SEEN PER NEURO Problems: Subjective 24 Hr Interval Summary Respiratory: no complaints Cardiovascular: no complaints Neurologic: other (NUMBNESS+) Exam/Review of Systems Vital Signs Vitals Vital Signs Date Time Temp Pulse Resp B/P Pulse Ox O2 Delivery O2 Flow Rate FiO2 12/21/16 08:45 103/64 12/21/16 08:00 97.6 84 18 96 Room Air Intake and Output 12/20/16 12/20/16 12/21/16 15:00 23:00 07:00 Intake Total 360 ml Balance 360 ml Exam Respiratory: clear to auscultation Cardiovascular: regular rate and rhythm Gastrointestinal: soft Musculoskeletal: nl extremities to inspection Extremities: normal pulses Results Result Diagram: 12/19/16 0618 12/21/16 0807 Results 24 hrs Laboratory Tests Test 12/21/16 08:07 Sodium Level 136 Potassium Level 4.2 Chloride Level 101 Carbon Dioxide Level 28 Anion Gap 11 Blood Urea Nitrogen 16 Creatinine 0.67 Glucose Level 121 Calcium Level 9.8 Medications Medications Current Medications Acetaminophen (Tylenol Tab) 650 mg Q6H PRN PO PAIN AND OR ELEVATED TEMP Last administered on 12/21/16 05:09; Admin Dose 650 MG; Start 12/18/16 at 23:45 Atorvastatin Calcium (Lipitor) 80 mg DAILY@21 PO Last administered on 20:13; Admin Dose 80 MG; Start 12/19/16 at 21:00 Bisacodyl (Dulcolax) 5 mg DAILY PRN PO CONSTIPATION; Start 12/18/16 at 23:45 Docusate Sodium (Colace) 100 mg Q12H PRN PO CONSTIPATION; Start 12/18/16 at 23: 45 Ferrous Sulfate (Ferrous Sulfate (Ec)) 325 mg BID PO Last administered on 08:38; Admin Dose 325 MG; Start 12/19/16 at 09:00 Lorazepam (Ativan) 1 mg Q4H PRN PO ANXIETY Last administered on 12/20/16 15:11 ; Admin Dose 1 MG; Start 12/18/16 at 23:45 Magnesium Hydroxide (Milk Of Mag) 30 ml DAILY PRN PO CONSTIPATION Last administered on 12/20/16 20:13; Admin Dose 30 ML; Start 12/18/16 at 23:45 Menthol/Methyl Salicylate (Noble Proctor) 1 applic TID PRN TOP TOPICALLY PRN MUSCLE PAIN; Start 12/18/16 at 23:45 Pantoprazole (Protonix Tab) 40 mg DAILY@06 PO Last administered on 12/21/16 05 :09; Admin Dose 40 MG; Start 12/19/16 at 06:00 Docusate Sodium (Colace) 100 mg BID PO Last administered on 12/21/16 08:38; Admin Dose 100 MG; Start 12/19/16 at 09:00 Senna (Senokot) 1 tab HS PO Last administered on 12/20/16 20:14; Admin Dose 1 TAB; Start 12/19/16 at 21:00 Lactulose (Enulose) 20 gm DAILY PRN PO CONSTIPATION Last administered on 09:06; Admin Dose 20 GM; Start 12/19/16 at 01:45 Gabapentin (Neurontin) 600 mg TID PO Last administered on 12/21/16 12:35; Admin Dose 600 MG; Start 12/19/16 at 21:00 Dipyridamole/ Aspirin (Aggrenox) 1 cap BID PO Last administered on 12/21/16 08 :38; Admin Dose 1 CAP; Start 12/19/16 at 21:00 Pregabalin (Lyrica) 50 mg BID PO Last administered on 12/21/16 11:43; Admin Dose 50 MG; Start 12/21/16 at 11:30 Acetaminophen/ Hydrocodone Bitart ([place] (5/325)) 1 tab Q4H PRN PO PAIN Last administered on 12/21/16 15:21; Admin Dose 1 TAB; Start 12/21/16 at 11:30 LUIS TAY MD December 21, 2016 17:56
[2016-12-21] MEDS ORDERED: ONDANSETRON 4 MG INJ IV PRN (20:00)
[2016-12-21] MEDS: ATORVASTATIN 80 MG TAB PO SCH (20:25)
[2016-12-21] MEDS: SENNA TAB PO SCH (20:26)
[2016-12-21 20:43] VITALS: BP 112/75; RESP 18
[2016-12-22] MEDS: HYDROCODONE/APAP (5/325) TAB PO PRN ×2 (00:43→06:25)
[2016-12-22] MEDS: LEVOTHYROXINE 100 MCG TAB PO SCH (06:24)
[2016-12-22] MEDS: PANTOPRAZOLE (EC) 40 MG TAB PO SCH (06:24)
--- NOTE | 2016-12-22 07:11 | PN ---
DATE: REFERRING PHYSICIAN: Dr. Sriram Olivia. HISTORY OF PRESENT ILLNESS: The patient is 46 years old status post right posterior cerebral artery stroke in which the patient is in acute rehab for more evaluation and treatment. The patient has s ome numbness and tingling in her left side in which we switched the aspirin to Aggrenox for stroke p rophylaxis. CURRENT MEDICATIONS: Include: 1. Lipitor 80 mg once a day. 2. Senna one tablet at night as needed. 3. Neurontin 600 mg 3 times a day. 4. Aggrenox 1 tablet twice a day. 5. Ferrous sulfate 325 mg once a day. 6. Colace 100 mg once a day. 7. Synthroid 100 mcg once a day. 8. Protonix 40 mg once a day. 9. Lactulose 20 mg once a day. 10. Tylenol 650 mg once a day. 11. Ativan 1 mg every 4 hours. 12. Milk of Magnesia 50 mg once a day. PHYSICAL EXAMINATION: On exam today, the patient is alert, awake, oriented, following simple comman ds. Cranial nerve II: Pupils equal on both sides, reactive to light. Cranial nerves III, IV, and : Extraocular muscles intact without nystagmus. Cranial nerve V: Equal sensation to face. Cran ial nerve VII: Symmetrical face. Cranial nerve VIII: Decreased hearing bilaterally. Cranial nerv es IX and X: Elevates palate. Cranial nerve XI: Elevates shoulder 5/5. Cranial nerve XII: With straight tongue. MOTOR: Moving both upper and lower extremities against gravity without difficulty. Sensation decre ased for glove and sock area for light touch and temperature. COORDINATION: [id number] test intact. HEART: Regular rate and rhythm. LUNGS: Equal breath sounds. ABDOMEN: Soft, relaxed, nondistended. No tenderness. ASSESSMENT AND PLAN 1. The patient is 46 years old lady with acute onset of posterior cerebral artery stroke. Will karolina p the patient on Aggrenox twice a day. 2. Status post . Keep the patient on Neurontin 600 mg 3 times a day. 3. Dyslipidemia. Keep the patient on Lipitor 80 mg once a day. 4. Hypertension. Keep the blood pressure level at 140/90. 5. We will keep the patient under acute rehabilitation, physical therapy and occupational therapy. Again, thank you for asking me to see the patient with you. Dictated By: LIV MACKEY/GUILLERMINA Conf#: [id number] DID#: [id number]
[2016-12-22] MEDS: DOCUSATE SODIUM 100 MG CAP PO SCH ×2 (08:43→20:14)
[2016-12-22] MEDS: PREGABALIN 50 MG CAP PO SCH ×2 (08:43→21:26)
[2016-12-22] MEDS: GABAPENTIN 300 MG CAP PO SCH ×3 (08:43→20:14)
[2016-12-22] MEDS: FERROUS SULFATE (EC) 325 MG TAB PO SCH ×2 (08:43→20:14)
[2016-12-22] MEDS: DIPYRIDAMOLE/ASPIRIN (SR) CAP PO SCH ×2 (08:44→20:13)
--- NOTE | 2016-12-22 11:28 | CONS ---
Date/Time of Note Date/Time of Note DATE: 12/22/16 TIME: 11:28 Consult Date/Type/Reason Admit Date/Time December 18, 2016 at 22:00 Type of Consultation: RENAL Subjective feeling better Objective Vital Signs Date Time Temp Pulse Resp B/P Pulse Ox O2 Delivery O2 Flow Rate FiO2 12/21/16 20:43 98.3 90 18 112/75 97 12/21/16 08:00 Room Air Intake and Output 12/21/16 12/21/16 12/22/16 14:59 22:59 06:59 Intake Total 1320 ml 1180 ml Output Total 500 ml Balance 820 ml 1180 ml pulm-cta abd-soft cga ambulation Results/Medications Result Diagram: 12/19/16 0618 12/21/16 0807 Medications Current Medications Acetaminophen (Tylenol Tab) 650 mg Q6H PRN PO PAIN AND OR ELEVATED TEMP Last administered on 12/21/16 05:09; Admin Dose 650 MG; Start 12/18/16 at 23:45 Atorvastatin Calcium (Lipitor) 80 mg DAILY@21 PO Last administered on 20:25; Admin Dose 80 MG; Start 12/19/16 at 21:00 Bisacodyl (Dulcolax) 5 mg DAILY PRN PO CONSTIPATION; Start 12/18/16 at 23:45 Docusate Sodium (Colace) 100 mg Q12H PRN PO CONSTIPATION; Start 12/18/16 at 23: 45 Ferrous Sulfate (Ferrous Sulfate (Ec)) 325 mg BID PO Last administered on 08:43; Admin Dose 325 MG; Start 12/19/16 at 09:00 Lorazepam (Ativan) 1 mg Q4H PRN PO ANXIETY Last administered on 12/20/16 15:11 ; Admin Dose 1 MG; Start 12/18/16 at 23:45 Magnesium Hydroxide (Milk Of Mag) 30 ml DAILY PRN PO CONSTIPATION Last administered on 12/20/16 20:13; Admin Dose 30 ML; Start 12/18/16 at 23:45 Menthol/Methyl Salicylate (Noble Proctor) 1 applic TID PRN TOP TOPICALLY PRN MUSCLE PAIN; Start 12/18/16 at 23:45 Pantoprazole (Protonix Tab) 40 mg DAILY@06 PO Last administered on 12/22/16 06 :24; Admin Dose 40 MG; Start 12/19/16 at 06:00 Docusate Sodium (Colace) 100 mg BID PO Last administered on 12/22/16 08:43; Admin Dose 100 MG; Start 12/19/16 at 09:00 Senna (Senokot) 1 tab HS PO Last administered on 12/21/16 20:26; Admin Dose 1 TAB; Start 12/19/16 at 21:00 Lactulose (Enulose) 20 gm DAILY PRN PO CONSTIPATION Last administered on 09:06; Admin Dose 20 GM; Start 12/19/16 at 01:45 Gabapentin (Neurontin) 600 mg TID PO Last administered on 12/22/16 08:43; Admin Dose 600 MG; Start 12/19/16 at 21:00 Dipyridamole/ Aspirin (Aggrenox) 1 cap BID PO Last administered on 12/22/16 08 :44; Admin Dose 1 CAP; Start 12/19/16 at 21:00 Pregabalin (Lyrica) 50 mg BID PO Last administered on 12/22/16 08:43; Admin Dose 50 MG; Start 12/21/16 at 11:30 Acetaminophen/ Hydrocodone Bitart ([place] (5/325)) 1 tab Q4H PRN PO PAIN Last administered on 12/22/16 06:25; Admin Dose 1 TAB; Start 12/21/16 at 11:30 Ondansetron HCl (Zofran Inj) 4 mg Q6H PRN IV NAUSEA AND/OR VOMITING Last administered on 12/22/16 08:43; Admin Dose 4 MG; Start 12/21/16 at 20:00 Assessment/Plan Additional Assessment/Plan Rehab- R STUDENT ASSISTANT infarct CVA; Cervical spinal stenosis Overall steady progress with rehab program Pain- adjust meds HTN dyslipidemia IAN NO MD December 22, 2016 11:28
[2016-12-22] MEDS: ACETAMINOPHEN 325 MG TAB PO PRN ×2 (13:20→20:13)
--- NOTE | 2016-12-22 19:44 | PN ---
Date/Time of Note Date/Time of Note DATE: 12/22/16 TIME: 19:43 Assessment/Plan VTE Prophylaxis VTE Prophylaxis Intervention: other Assessment/Plan Chief Complaint/Hosp Course CVA HTN PLAN PT OT SCAN SEEN PER NEURO stable Problems: Subjective 24 Hr Interval Summary ENT: no complaints Respiratory: no complaints Exam/Review of Systems Vital Signs Vitals Vital Signs Date Time Temp Pulse Resp B/P Pulse Ox O2 Delivery O2 Flow Rate FiO2 12/21/16 20:43 98.3 90 18 112/75 97 12/21/16 08:00 Room Air Intake and Output 12/21/16 12/21/16 12/22/16 15:00 23:00 07:00 Intake Total 1320 ml 1180 ml Output Total 500 ml Balance 820 ml 1180 ml Exam Respiratory: clear to auscultation Cardiovascular: regular rate and rhythm Gastrointestinal: soft Extremities: normal pulses Results Result Diagram: 12/19/16 0618 12/21/16 0807 Medications Medications Current Medications Acetaminophen (Tylenol Tab) 650 mg Q6H PRN PO PAIN AND OR ELEVATED TEMP Last administered on 12/22/16 13:20; Admin Dose 650 MG; Start 12/18/16 at 23:45 Atorvastatin Calcium (Lipitor) 80 mg DAILY@21 PO Last administered on 20:25; Admin Dose 80 MG; Start 12/19/16 at 21:00 Bisacodyl (Dulcolax) 5 mg DAILY PRN PO CONSTIPATION; Start 12/18/16 at 23:45 Docusate Sodium (Colace) 100 mg Q12H PRN PO CONSTIPATION; Start 12/18/16 at 23: 45 Ferrous Sulfate (Ferrous Sulfate (Ec)) 325 mg BID PO Last administered on 08:43; Admin Dose 325 MG; Start 12/19/16 at 09:00 Lorazepam (Ativan) 1 mg Q4H PRN PO ANXIETY Last administered on 12/20/16 15:11 ; Admin Dose 1 MG; Start 12/18/16 at 23:45 Magnesium Hydroxide (Milk Of Mag) 30 ml DAILY PRN PO CONSTIPATION Last administered on 12/20/16 20:13; Admin Dose 30 ML; Start 12/18/16 at 23:45 Menthol/Methyl Salicylate (Noble Proctor) 1 applic TID PRN TOP TOPICALLY PRN MUSCLE PAIN; Start 12/18/16 at 23:45 Pantoprazole (Protonix Tab) 40 mg DAILY@06 PO Last administered on 12/22/16 06 :24; Admin Dose 40 MG; Start 12/19/16 at 06:00 Docusate Sodium (Colace) 100 mg BID PO Last administered on 12/22/16 08:43; Admin Dose 100 MG; Start 12/19/16 at 09:00 Senna (Senokot) 1 tab HS PO Last administered on 12/21/16 20:26; Admin Dose 1 TAB; Start 12/19/16 at 21:00 Lactulose (Enulose) 20 gm DAILY PRN PO CONSTIPATION Last administered on 09:06; Admin Dose 20 GM; Start 12/19/16 at 01:45 Gabapentin (Neurontin) 600 mg TID PO Last administered on 12/22/16 12:54; Admin Dose 600 MG; Start 12/19/16 at 21:00 Dipyridamole/ Aspirin (Aggrenox) 1 cap BID PO Last administered on 12/22/16 08 :44; Admin Dose 1 CAP; Start 12/19/16 at 21:00 Acetaminophen/ Hydrocodone Bitart ([place] (5/325)) 1 tab Q4H PRN PO PAIN Last administered on 12/22/16 06:25; Admin Dose 1 TAB; Start 12/21/16 at 11:30 Ondansetron HCl (Zofran Inj) 4 mg Q6H PRN IV NAUSEA AND/OR VOMITING Last administered on 12/22/16 08:43; Admin Dose 4 MG; Start 12/21/16 at 20:00 Pregabalin (Lyrica) 50 mg TID PO ; Start 12/22/16 at 21:00 LUIS TAY MD December 22, 2016 19:44
[2016-12-22] MEDS: ATORVASTATIN 80 MG TAB PO SCH (20:13)
[2016-12-22] MEDS: SENNA TAB PO SCH (20:14)
[2016-12-22 20:29] VITALS: BP 119/66; RESP 18
[2016-12-23] MEDS: HYDROCODONE/APAP (5/325) TAB PO PRN ×2 (01:49→18:02)
[2016-12-23] MEDS: PANTOPRAZOLE (EC) 40 MG TAB PO SCH (06:18)
[2016-12-23] MEDS: LEVOTHYROXINE 100 MCG TAB PO SCH (06:18)
[2016-12-23 07:29] VITALS: BP 100/62; RESP 18
[2016-12-23] MEDS: DOCUSATE SODIUM 100 MG CAP PO SCH ×2 (08:56→20:44)
[2016-12-23] MEDS: DIPYRIDAMOLE/ASPIRIN (SR) CAP PO SCH ×2 (08:56→20:44)
[2016-12-23] MEDS: PREGABALIN 50 MG CAP PO SCH ×3 (08:56→20:44)
[2016-12-23] MEDS: GABAPENTIN 300 MG CAP PO SCH ×3 (08:57→21:42)
[2016-12-23] MEDS: FERROUS SULFATE (EC) 325 MG TAB PO SCH ×2 (08:57→20:44)
[2016-12-23] MEDS: LACTULOSE 30ML CUP PO PRN (09:03)
--- NOTE | 2016-12-23 11:55 | CONS ---
Date/Time of Note Date/Time of Note DATE: 12/23/16 TIME: 11:55 Consult Date/Type/Reason Admit Date/Time December 18, 2016 at 22:00 Type of Consultation: RENAL Subjective still with pain Objective pulm-cta sba self care Vital Signs Date Time Temp Pulse Resp B/P Pulse Ox O2 Delivery O2 Flow Rate FiO2 12/23/16 07:29 98.1 76 18 100/62 95 12/21/16 08:00 Room Air Intake and Output 12/22/16 12/22/16 12/23/16 15:00 23:00 07:00 Intake Total 960 ml 360 ml 1300 ml Output Total 200 ml Balance 760 ml 360 ml 1300 ml Results/Medications Result Diagram: 12/19/16 0618 12/21/16 0807 Medications Current Medications Acetaminophen (Tylenol Tab) 650 mg Q6H PRN PO PAIN AND OR ELEVATED TEMP Last administered on 12/22/16 20:13; Admin Dose 650 MG; Start 12/18/16 at 23:45 Atorvastatin Calcium (Lipitor) 80 mg DAILY@21 PO Last administered on 20:13; Admin Dose 80 MG; Start 12/19/16 at 21:00 Bisacodyl (Dulcolax) 5 mg DAILY PRN PO CONSTIPATION; Start 12/18/16 at 23:45 Docusate Sodium (Colace) 100 mg Q12H PRN PO CONSTIPATION; Start 12/18/16 at 23: 45 Ferrous Sulfate (Ferrous Sulfate (Ec)) 325 mg BID PO Last administered on 08:57; Admin Dose 325 MG; Start 12/19/16 at 09:00 Lorazepam (Ativan) 1 mg Q4H PRN PO ANXIETY Last administered on 12/20/16 15:11 ; Admin Dose 1 MG; Start 12/18/16 at 23:45 Magnesium Hydroxide (Milk Of Mag) 30 ml DAILY PRN PO CONSTIPATION Last administered on 12/20/16 20:13; Admin Dose 30 ML; Start 12/18/16 at 23:45 Menthol/Methyl Salicylate (Nob[place] Proctor) 1 applic TID PRN TOP TOPICALLY PRN MUSCLE PAIN; Start 12/18/16 at 23:45 Pantoprazole (Protonix Tab) 40 mg DAILY@06 PO Last administered on 12/23/16 06 :18; Admin Dose 40 MG; Start 12/19/16 at 06:00 Docusate Sodium (Colace) 100 mg BID PO Last administered on 12/23/16 08:56; Admin Dose 100 MG; Start 12/19/16 at 09:00 Senna (Senokot) 1 tab HS PO Last administered on 12/22/16 20:14; Admin Dose 1 TAB; Start 12/19/16 at 21:00 Lactulose (Enulose) 20 gm DAILY PRN PO CONSTIPATION Last administered on 09:03; Admin Dose 20 GM; Start 12/19/16 at 01:45 Dipyridamole/ Aspirin (Aggrenox) 1 cap BID PO Last administered on 12/23/16 08 :56; Admin Dose 1 CAP; Start 12/19/16 at 21:00 Acetaminophen/ Hydrocodone Bitart ([place] (5/325)) 1 tab Q4H PRN PO PAIN Last administered on 12/23/16 01:49; Admin Dose 1 TAB; Start 12/21/16 at 11:30 Pregabalin (Lyrica) 50 mg TID PO Last administered on 12/23/16 08:56; Admin Dose 50 MG; Start 12/22/16 at 21:00 Ondansetron HCl (Zofran Inj) 4 mg Q6H PRN IM NAUSEA AND/OR VOMITING; Start at 14:00 Gabapentin (Neurontin) 600 mg Q8 PO ; Start 12/23/16 at 14:00 Assessment/Plan Additional Assessment/Plan 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
[2016-12-23] MEDS: ACETAMINOPHEN 325 MG TAB PO PRN (13:19)
[2016-12-23] MEDS ORDERED: ONDANSETRON 4 MG INJ IM PRN (14:00)
[2016-12-23 19:58] VITALS: BP 129/81; RESP 18
--- NOTE | 2016-12-23 20:15 | PN ---
Date/Time of Note Date/Time of Note DATE: 12/23/16 TIME: 20:14 Assessment/Plan VTE Prophylaxis VTE Prophylaxis Intervention: other Assessment/Plan Chief Complaint/Hosp Course CVA HTN PLAN PT OT SCAN SEEN PER NEURO stable NEURONTIN FOR NEUROPATHY Problems: Subjective 24 Hr Interval Summary Respiratory: no complaints Cardiovascular: no complaints Exam/Review of Systems Vital Signs Vitals Vital Signs Date Time Temp Pulse Resp B/P Pulse Ox O2 Delivery O2 Flow Rate FiO2 12/23/16 19:58 98.3 90 18 129/81 95 12/21/16 08:00 Room Air Intake and Output 12/22/16 12/22/16 12/23/16 15:00 23:00 07:00 Intake Total 960 ml 360 ml 1300 ml Output Total 200 ml Balance 760 ml 360 ml 1300 ml Exam Neck: supple Respiratory: clear to auscultation Cardiovascular: regular rate and rhythm Gastrointestinal: soft Musculoskeletal: nl extremities to inspection Results Result Diagram: 12/19/16 0618 12/21/16 0807 Medications Medications Current Medications Acetaminophen (Tylenol Tab) 650 mg Q6H PRN PO PAIN AND OR ELEVATED TEMP Last administered on 12/23/16 13:19; Admin Dose 650 MG; Start 12/18/16 at 23:45 Atorvastatin Calcium (Lipitor) 80 mg DAILY@21 PO Last administered on 20:13; Admin Dose 80 MG; Start 12/19/16 at 21:00 Bisacodyl (Dulcolax) 5 mg DAILY PRN PO CONSTIPATION; Start 12/18/16 at 23:45 Docusate Sodium (Colace) 100 mg Q12H PRN PO CONSTIPATION; Start 12/18/16 at 23: 45 Ferrous Sulfate (Ferrous Sulfate (Ec)) 325 mg BID PO Last administered on 08:57; Admin Dose 325 MG; Start 12/19/16 at 09:00 Lorazepam (Ativan) 1 mg Q4H PRN PO ANXIETY Last administered on 12/20/16 15:11 ; Admin Dose 1 MG; Start 12/18/16 at 23:45 Magnesium Hydroxide (Milk Of Mag) 30 ml DAILY PRN PO CONSTIPATION Last administered on 12/20/16 20:13; Admin Dose 30 ML; Start 12/18/16 at 23:45 Menthol/Methyl Salicylate (Nob[place] Proctor) 1 applic TID PRN TOP TOPICALLY PRN MUSCLE PAIN; Start 12/18/16 at 23:45 Pantoprazole (Protonix Tab) 40 mg DAILY@06 PO Last administered on 12/23/16 06 :18; Admin Dose 40 MG; Start 12/19/16 at 06:00 Docusate Sodium (Colace) 100 mg BID PO Last administered on 12/23/16 08:56; Admin Dose 100 MG; Start 12/19/16 at 09:00 Senna (Senokot) 1 tab HS PO Last administered on 12/22/16 20:14; Admin Dose 1 TAB; Start 12/19/16 at 21:00 Lactulose (Enulose) 20 gm DAILY PRN PO CONSTIPATION Last administered on 09:03; Admin Dose 20 GM; Start 12/19/16 at 01:45 Dipyridamole/ Aspirin (Aggrenox) 1 cap BID PO Last administered on 12/23/16 08 :56; Admin Dose 1 CAP; Start 12/19/16 at 21:00 Acetaminophen/ Hydrocodone Bitart ([place] (5/325)) 1 tab Q4H PRN PO PAIN Last administered on 12/23/16 18:02; Admin Dose 1 TAB; Start 12/21/16 at 11:30 Pregabalin (Lyrica) 50 mg TID PO Last administered on 12/23/16 13:19; Admin Dose 50 MG; Start 12/22/16 at 21:00 Ondansetron HCl (Zofran Inj) 4 mg Q6H PRN IM NAUSEA AND/OR VOMITING; Start at 14:00 Gabapentin (Neurontin) 600 mg Q8 PO Last administered on 12/23/16 13:19; Admin Dose 600 MG; Start 12/23/16 at 14:00 LUIS TAY MD December 23, 2016 20:15
[2016-12-23] MEDS: ATORVASTATIN 80 MG TAB PO SCH (20:44)
[2016-12-23] MEDS: LORAZEPAM 1 MG TAB PO PRN (20:45)
[2016-12-23] MEDS: SENNA TAB PO SCH (20:45)
[2016-12-24] MEDS: LEVOTHYROXINE 100 MCG TAB PO SCH (06:43)
[2016-12-24] MEDS: GABAPENTIN 300 MG CAP PO SCH ×3 (06:43→21:04)
[2016-12-24] MEDS: PANTOPRAZOLE (EC) 40 MG TAB PO SCH (06:43)
[2016-12-24 07:30] VITALS: BP 104/61; RESP 18
[2016-12-24] MEDS: HYDROCODONE/APAP (5/325) TAB PO PRN (08:13)
[2016-12-24] MEDS: DOCUSATE SODIUM 100 MG CAP PO SCH ×2 (08:13→21:04)
[2016-12-24] MEDS: PREGABALIN 50 MG CAP PO SCH ×3 (08:13→21:04)
[2016-12-24] MEDS: DIPYRIDAMOLE/ASPIRIN (SR) CAP PO SCH ×2 (08:13→21:03)
[2016-12-24] MEDS: FERROUS SULFATE (EC) 325 MG TAB PO SCH ×2 (08:13→21:04)
--- NOTE | 2016-12-24 11:12 | CONS ---
Date/Time of Note Date/Time of Note DATE: 12/24/16 TIME: 11:11 Consult Date/Type/Reason Admit Date/Time December 18, 2016 at 22:00 Type of Consultation: RENAL Subjective overall improved Objective pulm-cta sba ambulation 150 feet Vital Signs Date Time Temp Pulse Resp B/P Pulse Ox O2 Delivery O2 Flow Rate FiO2 12/23/16 19:58 98.3 90 18 129/81 95 12/21/16 08:00 Room Air Intake and Output 12/23/16 12/23/16 12/24/16 14:59 22:59 06:59 Intake Total 1220 ml 600 ml 1120 ml Balance 1220 ml 600 ml 1120 ml Results/Medications Result Diagram: 12/21/16 0807 Medications Current Medications Acetaminophen (Tylenol Tab) 650 mg Q6H PRN PO PAIN AND OR ELEVATED TEMP Last administered on 12/23/16 13:19; Admin Dose 650 MG; Start 12/18/16 at 23:45 Atorvastatin Calcium (Lipitor) 80 mg DAILY@21 PO Last administered on 20:44; Admin Dose 80 MG; Start 12/19/16 at 21:00 Bisacodyl (Dulcolax) 5 mg DAILY PRN PO CONSTIPATION; Start 12/18/16 at 23:45 Docusate Sodium (Colace) 100 mg Q12H PRN PO CONSTIPATION; Start 12/18/16 at 23: 45 Ferrous Sulfate (Ferrous Sulfate (Ec)) 325 mg BID PO Last administered on 08:13; Admin Dose 325 MG; Start 12/19/16 at 09:00 Lorazepam (Ativan) 1 mg Q4H PRN PO ANXIETY Last administered on 12/23/16 20:45 ; Admin Dose 1 MG; Start 12/18/16 at 23:45 Magnesium Hydroxide (Milk Of Mag) 30 ml DAILY PRN PO CONSTIPATION Last administered on 12/20/16 20:13; Admin Dose 30 ML; Start 12/18/16 at 23:45 Menthol/Methyl Salicylate ([place] Proctor) 1 applic TID PRN TOP TOPICALLY PRN MUSCLE PAIN; Start 12/18/16 at 23:45 Pantoprazole (Protonix Tab) 40 mg DAILY@06 PO Last administered on 12/24/16 06 :43; Admin Dose 40 MG; Start 12/19/16 at 06:00 Docusate Sodium (Colace) 100 mg BID PO Last administered on 12/24/16 08:13; Admin Dose 100 MG; Start 12/19/16 at 09:00 Senna (Senokot) 1 tab HS PO Last administered on 12/23/16 20:45; Admin Dose 1 TAB; Start 12/19/16 at 21:00 Lactulose (Enulose) 20 gm DAILY PRN PO CONSTIPATION Last administered on 09:03; Admin Dose 20 GM; Start 12/19/16 at 01:45 Dipyridamole/ Aspirin (Aggrenox) 1 cap BID PO Last administered on 12/24/16 08 :13; Admin Dose 1 CAP; Start 12/19/16 at 21:00 Acetaminophen/ Hydrocodone Bitart ([place] (5/325)) 1 tab Q4H PRN PO PAIN Last administered on 12/24/16 08:13; Admin Dose 1 TAB; Start 12/21/16 at 11:30 Pregabalin (Lyrica) 50 mg TID PO Last administered on 12/24/16 08:13; Admin Dose 50 MG; Start 12/22/16 at 21:00 Ondansetron HCl (Zofran Inj) 4 mg Q6H PRN IM NAUSEA AND/OR VOMITING; Start at 14:00 Gabapentin (Neurontin) 600 mg Q8 PO Last administered on 12/24/16 06:43; Admin Dose 600 MG; Start 12/23/16 at 14:00 Assessment/Plan Additional Assessment/Plan 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
[2016-12-24 20:00] VITALS: BP 105/60; RESP 18
--- NOTE | 2016-12-24 20:07 | PN ---
Date/Time of Note Date/Time of Note DATE: 12/24/16 TIME: 20:06 Assessment/Plan VTE Prophylaxis VTE Prophylaxis Intervention: other Assessment/Plan Chief Complaint/Hosp Course CVA HTN PLAN PT OT SCAN SEEN PER NEURO stable NEURONTIN FOR NEUROPATHY pt ot Problems: Subjective 24 Hr Interval Summary Constitutional: no complaints Exam/Review of Systems Vital Signs Vitals Vital Signs Date Time Temp Pulse Resp B/P Pulse Ox O2 Delivery O2 Flow Rate FiO2 12/24/16 07:30 97.9 81 18 104/61 96 12/21/16 08:00 Room Air Intake and Output 12/23/16 12/23/16 12/24/16 15:00 23:00 07:00 Intake Total 1220 ml 600 ml 1120 ml Balance 1220 ml 600 ml 1120 ml Exam Respiratory: clear to auscultation Cardiovascular: regular rate and rhythm Gastrointestinal: soft Results Result Diagram: 12/21/16 0807 Medications Medications Current Medications Acetaminophen (Tylenol Tab) 650 mg Q6H PRN PO PAIN AND OR ELEVATED TEMP Last administered on 12/23/16 13:19; Admin Dose 650 MG; Start 12/18/16 at 23:45 Atorvastatin Calcium (Lipitor) 80 mg DAILY@21 PO Last administered on 20:44; Admin Dose 80 MG; Start 12/19/16 at 21:00 Bisacodyl (Dulcolax) 5 mg DAILY PRN PO CONSTIPATION; Start 12/18/16 at 23:45 Docusate Sodium (Colace) 100 mg Q12H PRN PO CONSTIPATION; Start 12/18/16 at 23: 45 Ferrous Sulfate (Ferrous Sulfate (Ec)) 325 mg BID PO Last administered on 08:13; Admin Dose 325 MG; Start 12/19/16 at 09:00 Lorazepam (Ativan) 1 mg Q4H PRN PO ANXIETY Last administered on 12/23/16 20:45 ; Admin Dose 1 MG; Start 12/18/16 at 23:45 Magnesium Hydroxide (Milk Of Mag) 30 ml DAILY PRN PO CONSTIPATION Last administered on 12/20/16 20:13; Admin Dose 30 ML; Start 12/18/16 at 23:45 Menthol/Methyl Salicylate (Nob[place] Proctor) 1 applic TID PRN TOP TOPICALLY PRN MUSCLE PAIN; Start 12/18/16 at 23:45 Pantoprazole (Protonix Tab) 40 mg DAILY@06 PO Last administered on 12/24/16 06 :43; Admin Dose 40 MG; Start 12/19/16 at 06:00 Docusate Sodium (Colace) 100 mg BID PO Last administered on 12/24/16 08:13; Admin Dose 100 MG; Start 12/19/16 at 09:00 Senna (Senokot) 1 tab HS PO Last administered on 12/23/16 20:45; Admin Dose 1 TAB; Start 12/19/16 at 21:00 Lactulose (Enulose) 20 gm DAILY PRN PO CONSTIPATION Last administered on 09:03; Admin Dose 20 GM; Start 12/19/16 at 01:45 Dipyridamole/ Aspirin (Aggrenox) 1 cap BID PO Last administered on 12/24/16 08 :13; Admin Dose 1 CAP; Start 12/19/16 at 21:00 Acetaminophen/ Hydrocodone Bitart ([place] (5/325)) 1 tab Q4H PRN PO PAIN Last administered on 12/24/16 08:13; Admin Dose 1 TAB; Start 12/21/16 at 11:30 Pregabalin (Lyrica) 50 mg TID PO Last administered on 12/24/16 14:31; Admin Dose 50 MG; Start 12/22/16 at 21:00 Ondansetron HCl (Zofran Inj) 4 mg Q6H PRN IM NAUSEA AND/OR VOMITING; Start at 14:00 Gabapentin (Neurontin) 600 mg Q8 PO Last administered on 12/24/16 14:31; Admin Dose 600 MG; Start 12/23/16 at 14:00 LUIS TAY MD December 24, 2016 20:07
[2016-12-24] MEDS: SENNA TAB PO SCH (21:04)
[2016-12-24] MEDS: ATORVASTATIN 80 MG TAB PO SCH (21:04)
[2016-12-25] MEDS: PANTOPRAZOLE (EC) 40 MG TAB PO SCH (05:00)
[2016-12-25] MEDS: LEVOTHYROXINE 100 MCG TAB PO SCH (05:01)
[2016-12-25] MEDS: HYDROCODONE/APAP (5/325) TAB PO PRN ×2 (05:01→20:26)
[2016-12-25] MEDS: GABAPENTIN 300 MG CAP PO SCH (05:01)
[2016-12-25] MEDS: ACETAMINOPHEN 325 MG TAB PO PRN ×2 (07:05→16:23)
[2016-12-25 07:37] VITALS: BP 115/74; RESP 18
[2016-12-25] MEDS: DOCUSATE SODIUM 100 MG CAP PO SCH ×2 (08:23→20:25)
[2016-12-25] MEDS: DIPYRIDAMOLE/ASPIRIN (SR) CAP PO SCH ×2 (08:23→20:25)
[2016-12-25] MEDS: FERROUS SULFATE (EC) 325 MG TAB PO SCH ×2 (08:23→20:25)
[2016-12-25] MEDS: LACTULOSE 30ML CUP PO PRN (08:25)
[2016-12-25] MEDS: PREGABALIN 50 MG CAP PO SCH ×3 (08:25→20:25)
--- NOTE | 2016-12-25 10:36 | PN ---
Date/Time of Note Date/Time of Note DATE: 12/25/16 TIME: 10:30 Assessment/Plan Assessment/Plan Assessment/Plan 1. Acute ischemic infarcts involving the right posterior cerebral artery territory with mild left nondominant hemiparesis, left hemisensory loss, impaired vision, impaired mobility/gait/ADLs. Continue PT/OT. Continues to make good progress. Ambulating 200ft with FWW. Gait slow paced, decreased stride, slight anterior trunk leaning. Continue to work on improving gait mechanics and dynamic standing balance to decrease fall risk. 2. Neuropathic pain, status post CVA. Also with evidence of cervical degenerative disc disease, spinal canal and neuralforaminal stenosis on MRI cervical spine. Still not optimally controlled, will increase gabapentin dose further, monitor for sedation. 3. Anemia. On iron supplementation. Continue to monitor hemoglobin/hematocrit. 4. Hypothyroidism. On levothyroxine. 5. Dyslipidemia. Continue statin. 6. Hypertension. BP controlled. Continue to monitor. 7. Constipation. Continue bowel regimen. Subjective 24 Hr Interval Summary Free Text/Dictation Rehab progress note Subjective: No acute overnight events. Still with ongoing paresthesias and neuropathic pain left side, most bothersome in left arm. No new weakness. ROS: Denies headache, no dizziness, no chest pain, no shortness of breath, no abdominal pain, no nausea or vomiting. Reports constipation. Exam/Review of Systems Vital Signs Vitals Vital Signs Date Time Temp Pulse Resp B/P Pulse Ox O2 Delivery O2 Flow Rate FiO2 12/25/16 07:37 97.9 76 18 115/74 97 12/21/16 08:00 Room Air Intake and Output 12/24/16 12/24/16 12/25/16 15:00 23:00 07:00 Intake Total 680 ml 120 ml Balance 680 ml 120 ml Results General: Awake, alert, no acute distress CV: Regular rate, s1s2 Lungs: Clear to auscultation, no wheezing Abdomen soft, nontender, +bowel sounds Extremities without cyanosis, no new swelling Neuro: No focal changes. Follows simple commands. Result Diagram: 12/21/16 0807 Medications Medications Current Medications Acetaminophen (Tylenol Tab) 650 mg Q6H PRN PO PAIN AND OR ELEVATED TEMP Last administered on 12/25/16t 07:05; Admin Dose 650 MG; Start 12/18/16 at 23:45 Atorvastatin Calcium (Lipitor) 80 mg DAILY@21 PO Last administered on 21:04; Admin Dose 80 MG; Start 12/19/16 at 21:00 Bisacodyl (Dulcolax) 5 mg DAILY PRN PO CONSTIPATION; Start 12/18/16 at 23:45 Docusate Sodium (Colace) 100 mg Q12H PRN PO CONSTIPATION; Start 12/18/16 at 23: 45 Ferrous Sulfate (Ferrous Sulfate (Ec)) 325 mg BID PO Last administered on 08:23; Admin Dose 325 MG; Start 12/19/16 at 09:00 Lorazepam (Ativan) 1 mg Q4H PRN PO ANXIETY Last administered on 12/23/16 20:45 ; Admin Dose 1 MG; Start 12/18/16 at 23:45 Magnesium Hydroxide (Milk Of Mag) 30 ml DAILY PRN PO CONSTIPATION Last administered on 12/20/16 20:13; Admin Dose 30 ML; Start 12/18/16 at 23:45 Menthol/Methyl Salicylate (Nob[place] Proctor) 1 applic TID PRN TOP TOPICALLY PRN MUSCLE PAIN; Start 12/18/16 at 23:45 Pantoprazole (Protonix Tab) 40 mg DAILY@06 PO Last administered on 12/25/16 05 :00; Admin Dose 40 MG; Start 12/19/16 at 06:00 Docusate Sodium (Colace) 100 mg BID PO Last administered on 12/25/16 08:23; Admin Dose 100 MG; Start 12/19/16 at 09:00 Senna (Senokot) 1 tab HS PO Last administered on 12/24/16 21:04; Admin Dose 1 TAB; Start 12/19/16 at 21:00 Lactulose (Enulose) 20 gm DAILY PRN PO CONSTIPATION Last administered on 08:25; Admin Dose 20 GM; Start 12/19/16 at 01:45 Dipyridamole/ Aspirin (Aggrenox) 1 cap BID PO Last administered on 12/25/16 08 :23; Admin Dose 1 CAP; Start 12/19/16 at 21:00 Acetaminophen/ Hydrocodone Bitart ([place] (5/325)) 1 tab Q4H PRN PO PAIN Last administered on 12/25/16 05:01; Admin Dose 1 TAB; Start 12/21/16 at 11:30 Pregabalin (Lyrica) 50 mg TID PO Last administered on 12/25/16t 08:25; Admin Dose 50 MG; Start 12/22/16 at 21:00 Ondansetron HCl (Zofran Inj) 4 mg Q6H PRN IM NAUSEA AND/OR VOMITING; Start at 14:00 Gabapentin (Neurontin) 800 mg Q8 PO ; Start 12/25/16 at 14:00; Status SOTO OMER December 25, 2016 10:36
--- NOTE | 2016-12-25 11:14 | CONS ---
Date/Time of Note Date/Time of Note DATE: 12/25/16 TIME: 11:07 Assessment/Plan Assessment/Plan Chief Complaint/Hosp Course 1. CVA 2. HTN Problems: Additional Assessment/Plan 1. PT OT 2. discharge pending 3. Continue NEURONTIN FOR NEUROPATHY Consultation Date/Type/Reason Admit Date/Time December 18, 2016 at 22:00 Initial Consult Date 12/18/2016 Type of Consultation: RENAL Reason for Consultation Dr Olivia 24 HR Interval Summary Constitutional: improved, no complaints Exam/Review of Systems Vital Signs Vitals Vital Signs Date Time Temp Pulse Resp B/P Pulse Ox O2 Delivery O2 Flow Rate FiO2 12/25/16 07:37 97.9 76 18 115/74 97 12/21/16 08:00 Room Air Intake and Output 12/24/16 12/24/16 12/25/16 14:59 22:59 06:59 Intake Total 680 ml 120 ml Balance 680 ml 120 ml Exam Constitutional: alert Genitourinary - Female: nl adnexae Results Result Diagram: 12/21/16 0807 Medications Medications Current Medications Acetaminophen (Tylenol Tab) 650 mg Q6H PRN PO PAIN AND OR ELEVATED TEMP Last administered on 12/25/16 07:05; Admin Dose 650 MG; Start 12/18/16 at 23:45 Atorvastatin Calcium (Lipitor) 80 mg DAILY@21 PO Last administered on 21:04; Admin Dose 80 MG; Start 12/19/16 at 21:00 Bisacodyl (Dulcolax) 5 mg DAILY PRN PO CONSTIPATION; Start 12/18/16 at 23:45 Docusate Sodium (Colace) 100 mg Q12H PRN PO CONSTIPATION; Start 12/18/16 at 23: 45 Ferrous Sulfate (Ferrous Sulfate (Ec)) 325 mg BID PO Last administered on 08:23; Admin Dose 325 MG; Start 12/19/16 at 09:00 Lorazepam (Ativan) 1 mg Q4H PRN PO ANXIETY Last administered on 12/23/16 20:45 ; Admin Dose 1 MG; Start 12/18/16 at 23:45 Magnesium Hydroxide (Milk Of Mag) 30 ml DAILY PRN PO CONSTIPATION Last administered on 12/20/16 20:13; Admin Dose 30 ML; Start 12/18/16 at 23:45 Menthol/Methyl Salicylate ([place] Proctor) 1 applic TID PRN TOP TOPICALLY PRN MUSCLE PAIN; Start 12/18/16 at 23:45 Pantoprazole (Protonix Tab) 40 mg DAILY@06 PO Last administered on 12/25/16 05 :00; Admin Dose 40 MG; Start 12/19/16 at 06:00 Docusate Sodium (Colace) 100 mg BID PO Last administered on 12/25/16 08:23; Admin Dose 100 MG; Start 12/19/16 at 09:00 Senna (Senokot) 1 tab HS PO Last administered on 12/24/16 21:04; Admin Dose 1 TAB; Start 12/19/16 at 21:00 Lactulose (Enulose) 20 gm DAILY PRN PO CONSTIPATION Last administered on 08:25; Admin Dose 20 GM; Start 12/19/16 at 01:45 Dipyridamole/ Aspirin (Aggrenox) 1 cap BID PO Last administered on 12/25/16 08 :23; Admin Dose 1 CAP; Start 12/19/16 at 21:00 Acetaminophen/ Hydrocodone Bitart ([place] (5/325)) 1 tab Q4H PRN PO PAIN Last administered on 12/25/16 05:01; Admin Dose 1 TAB; Start 12/21/16 at 11:30 Pregabalin (Lyrica) 50 mg TID PO Last administered on 12/25/16 08:25; Admin Dose 50 MG; Start 12/22/16 at 21:00 Ondansetron HCl (Zofran Inj) 4 mg Q6H PRN IM NAUSEA AND/OR VOMITING; Start at 14:00 Gabapentin (Neurontin) 800 mg Q8 PO ; Start 12/25/16 at 14:00 MILLER CLANCY December 25, 2016 11:14
[2016-12-25] MEDS: GABAPENTIN 400 MG CAP PO SCH ×2 (13:51→22:43)
[2016-12-25] MEDS: MAGNESIUM HYDROXIDE 30ML CUP PO PRN (14:17)
[2016-12-25 20:18] VITALS: BP 105/63; RESP 18
[2016-12-25] MEDS: ATORVASTATIN 80 MG TAB PO SCH (20:25)
[2016-12-25] MEDS: SENNA TAB PO SCH (20:25)
[2016-12-25] MEDS: LORAZEPAM 1 MG TAB PO PRN (20:26)
[2016-12-26] MEDS: LEVOTHYROXINE 100 MCG TAB PO SCH (06:25)
[2016-12-26] MEDS: PANTOPRAZOLE (EC) 40 MG TAB PO SCH (06:25)
[2016-12-26] MEDS: GABAPENTIN 400 MG CAP PO SCH ×3 (06:25→21:35)
[2016-12-26 07:30] VITALS: BP 108/57; RESP 18
[2016-12-26] MEDS: FERROUS SULFATE (EC) 325 MG TAB PO SCH ×2 (08:24→21:35)
[2016-12-26] MEDS: DOCUSATE SODIUM 100 MG CAP PO SCH ×2 (08:24→21:35)
[2016-12-26] MEDS: DIPYRIDAMOLE/ASPIRIN (SR) CAP PO SCH ×2 (08:24→21:35)
[2016-12-26] MEDS: PREGABALIN 25 MG CAP PO SCH ×3 (09:24→21:35)
--- NOTE | 2016-12-26 11:59 | CONS ---
Date/Time of Note Date/Time of Note DATE: 12/26/16 TIME: 11:57 Assessment/Plan Assessment/Plan Chief Complaint/Hosp Course 1. CVA 2. HTN Problems: Additional Assessment/Plan 1. Expecting discharge on Wednesday 2. Restore function left side of the body Consultation Date/Type/Reason Admit Date/Time December 18, 2016 at 22:00 Initial Consult Date 12/18/2016 Type of Consultation: RENAL Reason for Consultation Dr Olivia 24 HR Interval Summary Constitutional: improved, no complaints Exam/Review of Systems Vital Signs Vitals Vital Signs Date Time Temp Pulse Resp B/P Pulse Ox O2 Delivery O2 Flow Rate FiO2 12/26/16 07:30 97.8 82 18 108/57 96 Intake and Output 12/25/16 12/25/16 12/26/16 15:00 23:00 07:00 Intake Total 1200 ml 600 ml Balance 1200 ml 600 ml Exam Constitutional: alert, oriented Psych: no complaints Head: normocephalic Eyes: nl conjunctiva ENMT: nl external ears & nose Neck: supple Respiratory: clear to auscultation Cardiovascular: regular rate and rhythm Gastrointestinal: soft Medications Medications Current Medications Acetaminophen (Tylenol Tab) 650 mg Q6H PRN PO PAIN AND OR ELEVATED TEMP Last administered on 12/25/16 16:23; Admin Dose 650 MG; Start 12/18/16 at 23:45 Atorvastatin Calcium (Lipitor) 80 mg DAILY@21 PO Last administered on 20:25; Admin Dose 80 MG; Start 12/19/16 at 21:00 Bisacodyl (Dulcolax) 5 mg DAILY PRN PO CONSTIPATION; Start 12/18/16 at 23:45 Docusate Sodium (Colace) 100 mg Q12H PRN PO CONSTIPATION; Start 12/18/16 at 23: 45 Ferrous Sulfate (Ferrous Sulfate (Ec)) 325 mg BID PO Last administered on 08:24; Admin Dose 325 MG; Start 12/19/16 at 09:00 Lorazepam (Ativan) 1 mg Q4H PRN PO ANXIETY Last administered on 12/25/16 20:26 ; Admin Dose 1 MG; Start 12/18/16 at 23:45 Magnesium Hydroxide (Milk Of Mag) 30 ml DAILY PRN PO CONSTIPATION Last administered on 12/25/16 14:17; Admin Dose 30 ML; Start 12/18/16 at 23:45 Menthol/Methyl Salicylate ([place] Pro[place]) 1 applic TID PRN TOP TOPICALLY PRN MUSCLE PAIN; Start 12/18/16 at 23:45 Pantoprazole (Protonix Tab) 40 mg DAILY@06 PO Last administered on 12/26/16 06 :25; Admin Dose 40 MG; Start 12/19/16 at 06:00 Docusate Sodium (Colace) 100 mg BID PO Last administered on 12/26/16 08:24; Admin Dose 100 MG; Start 12/19/16 at 09:00 Senna (Senokot) 1 tab HS PO Last administered on 12/25/16 20:25; Admin Dose 1 TAB; Start 12/19/16 at 21:00 Lactulose (Enulose) 20 gm DAILY PRN PO CONSTIPATION Last administered on 08:25; Admin Dose 20 GM; Start 12/19/16 at 01:45 Dipyridamole/ Aspirin (Aggrenox) 1 cap BID PO Last administered on 12/26/16 08 :24; Admin Dose 1 CAP; Start 12/19/16 at 21:00 Acetaminophen/ Hydrocodone Bitart ([place] (5/325)) 1 tab Q4H PRN PO PAIN Last administered on 12/25/16 20:26; Admin Dose 1 TAB; Start 12/21/16 at 11:30 Ondansetron HCl (Zofran Inj) 4 mg Q6H PRN IM NAUSEA AND/OR VOMITING; Start at 14:00 Gabapentin (Neurontin) 800 mg Q8 PO Last administered on 12/26/16 06:25; Admin Dose 800 MG; Start 12/25/16 at 14:00 Pregabalin (Lyrica) 50 mg TID PO Last administered on 12/26/16 09:24; Admin Dose 50 MG; Start 12/26/16 at 09:00; Stop 12/26/16 at 23:00 Pregabalin (Lyrica) 50 mg TID PO ; Start 12/27/16 at 09:00 MILLER CLANCY December 26, 2016 11:59
--- NOTE | 2016-12-26 12:21 | PN ---
Date/Time of Note Date/Time of Note DATE: 12/26/16 TIME: 12:16 Assessment/Plan Assessment/Plan Assessment/Plan 1. Acute ischemic infarcts involving the right posterior cerebral artery territory with mild left nondominant hemiparesis, left hemisensory loss, impaired vision, impaired mobility/gait/ADLs. Continue PT/OT. Dynamic standing balance fair, gait improving now SPV with FWW. 2. Neuropathic pain, status post CVA. Also with evidence of cervical degenerative disc disease, spinal canal and neuralforaminal stenosis on MRI cervical spine. Gabapentin dose has been adjusted, monitor response. 3. Anemia. On iron supplementation. Continue to monitor hemoglobin/hematocrit. 4. Hypothyroidism. Continue levothyroxine. 5. Dyslipidemia. Continue statin. 6. Hypertension. Continue to monitor BP. Internal medicine managing. 7. Constipation. Continue bowel regimen. Patient declines suppository at this time. Nursing to check for fecal impaction. Subjective 24 Hr Interval Summary Free Text/Dictation Rehab progress note Subjective: Currently reports mild neuropathic pain on the left side, no new changes. ROS: Denies dizziness, no new visual changes, no new weakness, no abdominal pain , no nausea or vomiting. Exam/Review of Systems Vital Signs Vitals Vital Signs Date Time Temp Pulse Resp B/P Pulse Ox O2 Delivery O2 Flow Rate FiO2 12/26/16 07:30 97.8 82 18 108/57 96 Intake and Output 12/25/16 12/25/16 12/26/16 15:00 23:00 07:00 Intake Total 1200 ml 600 ml Balance 1200 ml 600 ml Exam General: Awake, alert, no acute distress CV: Regular rate, s1s2 Lungs: Symmetrical air entry bilaterally, no wheezing Abdomen soft, nontender, +bowel sounds Extremities without cyanosis, no distal edema Neuro: No focal changes. Medications Medications Current Medications Acetaminophen (Tylenol Tab) 650 mg Q6H PRN PO PAIN AND OR ELEVATED TEMP Last administered on 12/25/16 16:23; Admin Dose 650 MG; Start 12/18/16 at 23:45 Atorvastatin Calcium (Lipitor) 80 mg DAILY@21 PO Last administered on 20:25; Admin Dose 80 MG; Start 12/19/16 at 21:00 Bisacodyl (Dulcolax) 5 mg DAILY PRN PO CONSTIPATION; Start 12/18/16 at 23:45 Docusate Sodium (Colace) 100 mg Q12H PRN PO CONSTIPATION; Start 12/18/16 at 23: 45 Ferrous Sulfate (Ferrous Sulfate (Ec)) 325 mg BID PO Last administered on 08:24; Admin Dose 325 MG; Start 12/19/16 at 09:00 Lorazepam (Ativan) 1 mg Q4H PRN PO ANXIETY Last administered on 12/25/16 20:26 ; Admin Dose 1 MG; Start 12/18/16 at 23:45 Magnesium Hydroxide (Milk Of Mag) 30 ml DAILY PRN PO CONSTIPATION Last administered on 12/25/16 14:17; Admin Dose 30 ML; Start 12/18/16 at 23:45 Menthol/Methyl Salicylate (Nob[place] Proctor) 1 applic TID PRN TOP TOPICALLY PRN MUSCLE PAIN; Start 12/18/16 at 23:45 Pantoprazole (Protonix Tab) 40 mg DAILY@06 PO Last administered on 12/26/16 06 :25; Admin Dose 40 MG; Start 12/19/16 at 06:00 Docusate Sodium (Colace) 100 mg BID PO Last administered on 12/26/16 08:24; Admin Dose 100 MG; Start 12/19/16 at 09:00 Senna (Senokot) 1 tab HS PO Last administered on 12/25/16 20:25; Admin Dose 1 TAB; Start 12/19/16 at 21:00 Lactulose (Enulose) 20 gm DAILY PRN PO CONSTIPATION Last administered on 08:25; Admin Dose 20 GM; Start 12/19/16 at 01:45 Dipyridamole/ Aspirin (Aggrenox) 1 cap BID PO Last administered on 12/26/16 08 :24; Admin Dose 1 CAP; Start 12/19/16 at 21:00 Acetaminophen/ Hydrocodone Bitart ([place] (5/325)) 1 tab Q4H PRN PO PAIN Last administered on 12/25/16 20:26; Admin Dose 1 TAB; Start 12/21/16 at 11:30 Ondansetron HCl (Zofran Inj) 4 mg Q6H PRN IM NAUSEA AND/OR VOMITING; Start at 14:00 Gabapentin (Neurontin) 800 mg Q8 PO Last administered on 12/26/16 06:25; Admin Dose 800 MG; Start 12/25/16 at 14:00 Pregabalin (Lyrica) 50 mg TID PO Last administered on 12/26/16 09:24; Admin Dose 50 MG; Start 12/26/16 at 09:00; Stop 12/26/16 at 23:00 Pregabalin (Lyrica) 50 mg TID PO ; Start 12/27/16 at 09:00 Bisacodyl (Dulcolax Supp) 10 mg DAILY PRN [place] CONSTIPATION; Start 12/26/16 at 12 :30; Status SOTO OMER December 26, 2016 12:21
[2016-12-26] MEDS ORDERED: BISACODYL 10 MG SUPP PR PRN (12:30)
[2016-12-26] MEDS: ACETAMINOPHEN 325 MG TAB PO PRN (12:47)
[2016-12-26 19:35] VITALS: BP 102/61; RESP 18
[2016-12-26] MEDS: ATORVASTATIN 80 MG TAB PO SCH (21:35)
[2016-12-26] MEDS: SENNA TAB PO SCH (21:36)
[2016-12-26] MEDS: LORAZEPAM 1 MG TAB PO PRN (21:36)
[2016-12-27] MEDS: GABAPENTIN 400 MG CAP PO SCH ×3 (06:54→20:23)
[2016-12-27] MEDS: LEVOTHYROXINE 100 MCG TAB PO SCH (06:54)
[2016-12-27] MEDS: PANTOPRAZOLE (EC) 40 MG TAB PO SCH (06:54)
[2016-12-27] MEDS: DOCUSATE SODIUM 100 MG CAP PO SCH ×2 (09:00→20:23)
[2016-12-27] MEDS: FERROUS SULFATE (EC) 325 MG TAB PO SCH ×2 (09:00→20:23)
[2016-12-27] MEDS: DIPYRIDAMOLE/ASPIRIN (SR) CAP PO SCH ×4 (09:00→20:23)
[2016-12-27] MEDS: PREGABALIN 50 MG CAP PO SCH ×3 (09:03→20:23)
[2016-12-27] MEDS: ACETAMINOPHEN 325 MG TAB PO PRN ×2 (14:55→23:38)
--- NOTE | 2016-12-27 16:49 | PN ---
Date/Time of Note Date/Time of Note DATE: 12/27/16 TIME: 16:48 Assessment/Plan VTE Prophylaxis VTE Prophylaxis Intervention: other Assessment/Plan Chief Complaint/Hosp Course CVA HTN PLAN PT OT SCAN SEEN PER NEURO stable NEURONTIN FOR NEUROPATHY pt ot Problems: Subjective 24 Hr Interval Summary Cardiovascular: no complaints Gastrointestinal: no complaints Exam/Review of Systems Vital Signs Vitals Vital Signs Date Time Temp Pulse Resp B/P Pulse Ox O2 Delivery O2 Flow Rate FiO2 12/26/16 19:35 98.0 84 18 102/61 97 Intake and Output 12/26/16 12/26/16 12/27/16 15:00 23:00 07:00 Intake Total 100 ml 770 ml Output Total 2 ml Balance 100 ml 770 ml -2 ml Exam Respiratory: clear to auscultation Cardiovascular: regular rate and rhythm Gastrointestinal: soft Extremities: normal pulses Medications Medications Current Medications Acetaminophen (Tylenol Tab) 650 mg Q6H PRN PO PAIN AND OR ELEVATED TEMP Last administered on 12/27/16 14:55; Admin Dose 650 MG; Start 12/18/16 at 23:45 Atorvastatin Calcium (Lipitor) 80 mg DAILY@21 PO Last administered on 21:35; Admin Dose 80 MG; Start 12/19/16 at 21:00 Bisacodyl (Dulcolax) 5 mg DAILY PRN PO CONSTIPATION; Start 12/18/16 at 23:45 Docusate Sodium (Colace) 100 mg Q12H PRN PO CONSTIPATION; Start 12/18/16 at 23: 45 Ferrous Sulfate (Ferrous Sulfate (Ec)) 325 mg BID PO Last administered on 09:00; Admin Dose 325 MG; Start 12/19/16 at 09:00 Lorazepam (Ativan) 1 mg Q4H PRN PO ANXIETY Last administered on 12/26/16 21:36 ; Admin Dose 1 MG; Start 12/18/16 at 23:45 Magnesium Hydroxide (Milk Of Mag) 30 ml DAILY PRN PO CONSTIPATION Last administered on 12/25/16 14:17; Admin Dose 30 ML; Start 12/18/16 at 23:45 Menthol/Methyl Salicylate (Noble Proctor) 1 applic TID PRN TOP TOPICALLY PRN MUSCLE PAIN; Start 12/18/16 at 23:45 Pantoprazole (Protonix Tab) 40 mg DAILY@06 PO Last administered on 12/27/16 06 :54; Admin Dose 40 MG; Start 12/19/16 at 06:00 Docusate Sodium (Colace) 100 mg BID PO Last administered on 12/27/16 09:00; Admin Dose 100 MG; Start 12/19/16 at 09:00 Senna (Senokot) 1 tab HS PO Last administered on 12/26/16 21:36; Admin Dose 1 TAB; Start 12/19/16 at 21:00 Lactulose (Enulose) 20 gm DAILY PRN PO CONSTIPATION Last administered on 08:25; Admin Dose 20 GM; Start 12/19/16 at 01:45 Dipyridamole/ Aspirin (Aggrenox) 1 cap BID PO Last administered on 12/27/16 09 :03; Admin Dose 1 CAP; Start 12/19/16 at 21:00 Acetaminophen/ Hydrocodone Bitart ([place] (5/325)) 1 tab Q4H PRN PO PAIN Last administered on 12/25/16 20:26; Admin Dose 1 TAB; Start 12/21/16 at 11:30 Ondansetron HCl (Zofran Inj) 4 mg Q6H PRN IM NAUSEA AND/OR VOMITING; Start at 14:00 Gabapentin (Neurontin) 800 mg Q8 PO Last administered on 12/27/16 13:22; Admin Dose 800 MG; Start 12/25/16 at 14:00 Pregabalin (Lyrica) 50 mg TID PO Last administered on 12/27/16 12:44; Admin Dose 50 MG; Start 12/27/16 at 09:00 Bisacodyl (Dulcolax Supp) 10 mg DAILY PRN [place] CONSTIPATION Last administered on 12/26/16 12:47; Admin Dose 10 MG; Start 12/26/16 at 12:30 LUIS TAY MD December 27, 2016 16:49
[2016-12-27 20:22] VITALS: BP 105/62; RESP 20
[2016-12-27] MEDS: SENNA TAB PO SCH (20:22)
[2016-12-27] MEDS: ATORVASTATIN 80 MG TAB PO SCH (20:23)
[2016-12-28] MEDS: GABAPENTIN 400 MG CAP PO SCH ×2 (06:26→13:51)
[2016-12-28] MEDS: PANTOPRAZOLE (EC) 40 MG TAB PO SCH (06:26)
[2016-12-28] MEDS: LEVOTHYROXINE 100 MCG TAB PO SCH (06:30)
[2016-12-28 07:30] VITALS: BP 126/62; RESP 18
[2016-12-28] MEDS: PREGABALIN 50 MG CAP PO SCH ×2 (08:41→13:52)
[2016-12-28] MEDS: DOCUSATE SODIUM 100 MG CAP PO SCH (08:41)
[2016-12-28] MEDS: FERROUS SULFATE (EC) 325 MG TAB PO SCH (08:41)
[2016-12-28] MEDS: DIPYRIDAMOLE/ASPIRIN (SR) CAP PO SCH (08:41)
--- NOTE | 2016-12-28 11:46 | CONS ---
Date/Time of Note Date/Time of Note DATE: 12/28/16 TIME: 11:45 Consult Date/Type/Reason Admit Date/Time December 18, 2016 at 22:00 Type of Consultation: RENAL Objective Vital Signs Date Time Temp Pulse Resp B/P Pulse Ox O2 Delivery O2 Flow Rate FiO2 12/28/16 07:30 97.6 77 18 126/62 96 Intake and Output 12/27/16 12/27/16 12/28/16 15:00 23:00 07:00 Intake Total 1940 ml 200 ml Balance 1940 ml 200 ml Exam INTERDISCIPLINARY TEAM CONFERENCE BOWEL- Cont BLADDER-Cont SKIN- intact OT- DRESSING-SC BATHING-SC TOILETING-SC PT- BED MOBILITY-SC TRANSFERS-SC AMBULATION-SC 200 FEET A/P- Interdisciplinary team conference held today. Please see interdisciplinary sheet. Working toward d.c. today with post discharge follow up of physical therapy, occupational therapy. Results/Medications Medications Current Medications Acetaminophen (Tylenol Tab) 650 mg Q6H PRN PO PAIN AND OR ELEVATED TEMP Last administered on 12/27/16 23:38; Admin Dose 650 MG; Start 12/18/16 at 23:45 Atorvastatin Calcium (Lipitor) 80 mg DAILY@21 PO Last administered on 20:23; Admin Dose 80 MG; Start 12/19/16 at 21:00 Bisacodyl (Dulcolax) 5 mg DAILY PRN PO CONSTIPATION; Start 12/18/16 at 23:45 Docusate Sodium (Colace) 100 mg Q12H PRN PO CONSTIPATION; Start 12/18/16 at 23: 45 Ferrous Sulfate (Ferrous Sulfate (Ec)) 325 mg BID PO Last administered on 08:41; Admin Dose 325 MG; Start 12/19/16 at 09:00 Lorazepam (Ativan) 1 mg Q4H PRN PO ANXIETY Last administered on 12/26/16 21:36 ; Admin Dose 1 MG; Start 12/18/16 at 23:45 Magnesium Hydroxide (Milk Of Mag) 30 ml DAILY PRN PO CONSTIPATION Last administered on 12/25/16 14:17; Admin Dose 30 ML; Start 12/18/16 at 23:45 Menthol/Methyl Salicylate (Noble Proctor) 1 applic TID PRN TOP TOPICALLY PRN MUSCLE PAIN; Start 12/18/16 at 23:45 Pantoprazole (Protonix Tab) 40 mg DAILY@06 PO Last administered on 12/28/16 06 :26; Admin Dose 40 MG; Start 12/19/16 at 06:00 Docusate Sodium (Colace) 100 mg BID PO Last administered on 12/28/16 08:41; Admin Dose 100 MG; Start 12/19/16 at 09:00 Senna (Senokot) 1 tab HS PO Last administered on 12/27/16 20:22; Admin Dose 1 TAB; Start 12/19/16 at 21:00 Lactulose (Enulose) 20 gm DAILY PRN PO CONSTIPATION Last administered on 08:25; Admin Dose 20 GM; Start 12/19/16 at 01:45 Dipyridamole/ Aspirin (Aggrenox) 1 cap BID PO Last administered on 12/28/16 08 :41; Admin Dose 1 CAP; Start 12/19/16 at 21:00 Acetaminophen/ Hydrocodone Bitart ([place] (5/325)) 1 tab Q4H PRN PO PAIN Last administered on 12/25/16 20:26; Admin Dose 1 TAB; Start 12/21/16 at 11:30 Ondansetron HCl (Zofran Inj) 4 mg Q6H PRN IM NAUSEA AND/OR VOMITING; Start at 14:00 Gabapentin (Neurontin) 800 mg Q8 PO Last administered on 12/28/16 06:26; Admin Dose 800 MG; Start 12/25/16 at 14:00 Pregabalin (Lyrica) 50 mg TID PO Last administered on 12/28/16 08:41; Admin Dose 50 MG; Start 12/27/16 at 09:00 Bisacodyl (Dulcolax Supp) 10 mg DAILY PRN [place] CONSTIPATION Last administered on 12/26/16 12:47; Admin Dose 10 MG; Start 12/26/16 at 12:30 IAN NO MD December 28, 2016 11:46 IAN NO MD December 28, 2016 11:46
== END 2016-12-28 15:25 | disposition home health service (06) | DRG 57 ==
LOC: VRC 22:00
PROVIDERS: ADMIT Physical Medicine & Rehabilitation; ATTEND Physical Medicine & Rehabilitation
DX: I69.354 Hemiplegia and hemiparesis following cerebral infarction affecting left non-dominant side (principal); G62.9 Polyneuropathy, unspecified; I10 Essential (primary) hypertension; Z74.09 Other reduced mobility; H54.7 Unspecified visual loss; D64.9 Anemia, unspecified; E03.9 Hypothyroidism, unspecified; E78.5 Hyperlipidemia, unspecified; M48.02 Spinal stenosis, cervical region; K59.00 Constipation, unspecified
CPT/HCPCS: 70450; 70551; 80048; 80053; 81003; 82550; 82553; 84484; 85025; 87081; 92507; 92523; 92526; 92610; 93005; 97110; 97112; 97116; 97150; 97163; 97167; 97530; 97535; J2405